=== PATIENT | male | born 1980 | race Caucasian/White ===

== ENCOUNTER 2017-08-11 13:36 | Inpatient (IN) | payer OTHER ==
[~2017-08-11] VITALS: Ht 187 cm; Wt 79.8 kg
--- NOTE | 2017-08-11 15:16 | ED DYSPNEA/ASTHMA COMPLAINT ---
History of Present Illness General Chief Complaint: General Adult Stated Complaint: FEVER, SOB, COUGHING, "SHARP PAIN IN LEFT LUNG" Source: patient Exam Limitations: no limitations Vital Signs & Intake/Output Vital Signs & Intake/Output Vital Signs Date Time Temp Pulse Resp B/P B/P Pulse O2 O2 Flow FiO2 Mean Ox Delivery Rate 08/12 07 98.0 102 20 104/64 96 Room Air 08/11 2351 98.2 92 20 140/89 99 Room Air 08/11 2331 Room Air 08/11 2218 96 16 126/73 97 Room Air 08/11 1943 100.4 08/11 1916 100.4 118 14 124/71 100 Room Air 08/11 1636 101.6 81 22 134/79 99 Room Air 08/11 1629 Room Air 08/11 1414 101.9 08/11 1406 101.9 071 59 5740/83 96 Room Air ED Intake and Output 08/12 0000 08/11 1200 Intake Total 2000 Output Total Balance 1999 Intake, IV 2000 Patient 176 lb Weight Weight Reported by Patient Measurement Method Allergies Coded Allergies: Penicillins ("DON'T WORK WELL WITH ME" 08/11/17) amoxicillin ("DONT WORK WELL WITH ME" 08/11/17) azithromycin (From ZITHROMAX Z-JO) (ITCHING 08/11/17) Reconcile Medications Cholecalciferol (Vitamin D3) (Vitamin D) 400 UNIT CAPSULE 1 TAB PO DAILY SUPPLEMENT (Reported) Doxycycline Hyclate 100 MG CAPSULE 1 CAP PO BID PRN URI (Reported) Fish Oil/Borage/Flax/Om3,6,9#1 ([place] 3-6-9 1,200 MG Softgel) 1,200 MG CAPSULE 1 CAP PO BID PRN SUPPLEMENT (Reported) Hydroxychloroquine Sulfate 200 MG TABLET 2 TAB PO DAILY LUPUS (Reported) Multivitamin (One Daily Multivitamin) 1 EACH TABLET 1 TAB PO DAILY SUPPLEMENT (Reported) Turmeric/Turmeric Ext/Pepr Ext (Turmeric Complex 500 MG Cap) 500 MG-3 MG CAPSULE 1 TAB PO DAILY SUPPLEMENT (Reported) Triage Note: PT TO ED C/O CONTINUED URI/BRONCHITIS S/S. WAS SEEN IN ED IN [place] AND DIAGNOSED WITH BRONCHITIS, PUT ON DOXYCYCLINE 2 WEEKS AGO.STATES BRONCHITIS S/S ARE NOT GETTING BETTER. C/O CONTINUED COUGH. POOR PO INTAKE. TEMP 101.9 IN TRIAGE. MEDICATED WITH TYLENOL. TOOK MOTRIN 0830 THIS AM. Triage Nurses Notes Reviewed? yes HPI: 37 year old male with history of LUPUS diagnosed once in 2007 not under treatment presents to the ER with chief complaint of her upper respiratory symptoms and fever for the past 2 weeks. MAXIMUM TEMPERATURE at home of 2.8. He was seen at [facility] 2 weeks ago had blood, EKG, chest x-ray done which were all negative. They prescribed him doxycycline but he did not start until approximately 4 days ago. He has had a doses by mouth. He didn't try to follow-up with a clinic and he states all of his doctor should change. He recently began plaque L. Patient states he lived in [place] for many years. He states secondary to the weather and he admitted he never experienced any kind of flare and was never treated for lupus other than using [id number] turmeric. Past History Travel History Traveled to [place] past 21 day No Medical History Any Pertinent Medical History? see below for history Respiratory: asthma Blood Disorders: lupus Surgical History Surgical History: adenoids, nasal polyps Psychosocial History What is your primary language Egyptian Tobacco Use: Quit >30 days ago ETOH Use: denies use Illicit Drug Use: denies illicit drug use Family History Comment: COUSIN - LUPUS MOTHERR - POLYCYSTIC KIDNEY DISEASE MATERNAL GRANDMOTHER - DM, CVA CANCERS IN FAMILY (PANCREATIC CANCER) Hx Contributory? Yes Review of Systems Review of Systems Constitutional: Reports: chills, fever. EENTM: Reports: no symptoms. Respiratory: Reports: cough, short of breath. Denies: sputum production. Cardiovascular: Reports: chest pain. GI: Reports: no symptoms. Genitourinary: Reports: no symptoms. Musculoskeletal: Reports: back pain. Skin: Reports: no symptoms. Neurological/Psychological: Reports: no symptoms. Hematologic/Endocrine: Denies: bruising, bleeding, polyuria, polydipsia. Immunologic/Allergic: Reports: no symptoms. All Other Systems: Reviewed and Negative Physical Exam Physical Exam General Appearance: alert, awake, cachetic, mild distress, thin Head: atraumatic, normal appearance Eyes: Bilateral: normal appearance, PERRL, EOMI. Ears, Nose, Throat: normal pharynx, hearing grossly normal Neck: normal inspection, supple, full range of motion Respiratory: normal breath sounds, chest non-tender, decreased breath sounds Cardiovascular: tachycardia Peripheral Pulses: 2+ radial (R), 2+ radial (L) Core Measures ACS in differential dx? Yes CVA/TIA Diagnosis No Sepsis Present: No Sepsis Focused Exam Completed? No Progress Plan of Care: Orders Procedure Date/time Status Nothing by Mouth 08/12 B Active PARTIAL THROMBOPLASTIN TIME 08/12 1030 Active CBC WITHOUT DIFFERENTIAL 08/12 0600 Active AFB WITH SMEAR 08/12 0512 Active Heparin Drip- AFIB/FLUTTER/PE/ 08/12 0504 Active TYPE & SCREEN (NOT X-MATCH) 08/12 0500 Active STREP PNEUMO URINARY ANTIGEN 08/12 0458 Active LEGIONELLA URINARY ANTIGEN 08/12 0458 Active THYROID STIMULATING HORMONE 08/12 0400 Active TROPONIN LEVEL 08/12 0400 Active LYME TITRE 08/12 0400 Active LIPID PANEL 08/12 0400 Active GLYCOSYLATED HGB 08/12 0400 Active FREE T4 08/12 0400 Active BASIC ELECTROLYTES PLUS BUN&CR 08/12 0400 Active EKG 08/12 0400 Active US-LIMITED ABDOMEN 08/12 UNK Active TRC EVALUATION (GEN) 08/12 UNK Active INCENTIVE SPIROMETRY TRX (GEN) 08/12 UNK Active Lab Add-on Test 08/12 UNK Active EKG 08/12 UNK Active ECHOCARDIOGRAM 08/12 UNK Active Vital Signs 08/11 2331 Complete Teach/Educate 08/11 2331 Active Pain Treatment and Response 08/11 2331 Active Nutritional Intake, Monitor 08/11 2331 Active Isolation 08/11 2331 Active Intake & Output 08/11 2331 Complete Patient Care Conference 08/11 2331 Active Activity/Ambulation 08/11 2331 Complete Add-on Test (ER Only) 08/11 2254 Active THYROID STIMULATING HORMONE 08/115 Active TOTAL IRON BINDING CAPACITY 08/11 2204 Active LIPASE 08/11 2204 Active HEPATITIS PANEL 08/11 2204 Active FREE T4 08/11 2204 Active FOLIC ACID 08/11 2204 Active FERRITIN 08/11 2204 Active SERUM IRON 08/11 2204 Active VITAMIN B12 08/11 2204 Active AMYLASE 08/11 2204 Active TROPONIN LEVEL 08/11 2199 Active EKG 08/11 2199 Active Pathway - chart 08/11 2056 Active House Staff 08/11 2056 Active Patient Data 08/11 2056 Active OXYGEN SETUP (GEN) 08/11 2012 Active Saline Lock 08/11 2012 Active Admit to inpatient 08/11 2012 Active Vital Signs 08/11 2012 Active Activity/Ambulation 08/11 2012 Active Code Status 08/11 2012 Active Patient Data 08/11 2002 Active Intake & Output 08/11 1721 Active ETHANOL 08/11 1600 Complete LACTIC ACID 08/11 1523 Complete EKG 08/11 1516 Active BLOOD CULTURE 08/11 1515 Active URINE DRUGS OF ABUSE 08/11 1515 Complete URINALYSIS 08/11 1515 Complete TROPONIN LEVEL 08/11 1515 Complete PARTIAL THROMBOPLASTIN TIME 08/11 1515 Complete PROTHROMBIN TIME 08/11 1515 Complete HIV (Reflex to HIVCQ) 08/11 1515 Complete WESTERGREN SED RATE 08/11 1515 Complete D-DIMER 08/11 1515 Complete C-REACTIVE PROTEIN 08/11 1515 Complete COMPREHENSIVE METABOLIC PANEL 08/11 1515 Complete CBC WITHOUT DIFFERENTIAL 08/11 1515 Complete RAPID VIRAL INFLUENZA A 08/11 1347 Complete Lab Add-on Test 08/11 UNK Active VTE Mechanical Prophylaxis 08/11 UNK Active Current Medications Sig/[place] Start time Last Medication Dose Stop Time Status Admin Ceftriaxone Sodium 1,000 MG 2100 08/12 2100 AC (Rocephin) Doxycycline Hyclate 100 MG 2100 08/12 2100 AC (Vibramycin) Dextrose/Water 100 ML (D5W) Colchicine 600 MCG BID 08/12 1000 CAN (Colchicine 600MCG Tab) Hydroxychloroquine 400 MG DAILY 08/12 1000 AC Sulfate (Plaquenil 200MG Tab) Prednisone 15 MG DAILY 08/12 1000 AC Omeprazole 40 MG DAILY AC 08/12 0700 AC 08/12 (Prilosec) 0449 Acetaminophen 975 MG Q8P PRN 08/12 0600 AC 08/12 (Tylenol) 0610 Sodium Chloride 1,000 ML Q13H 08/12 0515 AC 08/12 (Normal Saline 0.9%) 08/12 1814 0430 Diltiazem HCl 125 MG Q24H 08/12 0330 AC 08/12 (Cardizem DRIP) 0444 Sodium Chloride 100 ML (Normal Saline 0.9%) Heparin Sodium 25,000 UNIT Q24H 08/12 0315 AC 08/12 (Porcine) 0430 (Heparin) Sodium Chloride 500 ML Simethicone 80 MG Q4P PRN 08/11 2345 AC 08/11 (Mylicon) 2352 Laboratory Tests 08/12/17 0620: CBC w Diff Pending, WBC Pending, RBC Pending, Hgb Pending, Hct Pending, MCV Pending, MCH Pending, MCHC Pending, RDW Pending, Plt Count Pending, MPV Pending 08/12/17 0400: Anion Gap 12, Estimated GFR > 60, BUN/Creatinine Ratio 24.0, Hemoglobin A1c Pending, Troponin I < 0.01, Triglycerides 62, Cholesterol 79, LDL Cholesterol, Calc 51 L, HDL Cholesterol 16 L, Cholesterol/HDL Ratio 4.9 H, TSH 0.316, Free T4 1.31, Lyme Disease Antibody Pending 08/11/17 2205: Iron 14 L, TIBC 227 L, Ferritin 466.0 H, Troponin I 0.01, Amylase < 30 L, Lipase 32, Vitamin B12 768, Folate 19.7, TSH 0.677, Free T4 1.48, Hepatitis A IgM Ab Pending, Hep Bs Antigen Pending, Hep B Core IgM Ab Conf Pending, Hepatitis C Antibody Pending 08/11/17 1823: Lactic Acid Cancelled 08/11/17 1719: Urine Opiates Screen < 100.00, Methadone Screen < 40, Barbiturate Screen < 60, Ur Phencyclidine Scrn < 6.00, Amphetamines Screen < 100, U Benzodiazepines Scrn < 85, Urine Cocaine Screen < 50, Urine Cannabis Screen < 5.00, Urine Color YEL, Urine Clarity CLEAR, Urine pH 6.5, Ur Specific [place] 1.010, Urine Protein NEG, Urine Ketones TRACE H, Urine Nitrite NEG, Urine Bilirubin NEG, Urine Urobilinogen 1.0, Ur Leukocyte Esterase NEG, Ur Microscopic EXAM NOT REQUIRED, Urine Hemoglobin NEG, Urine Glucose NEG 08/11/17 1600: Lactic Acid 1.1 08/11/17 1600: Anion Gap 12, Estimated GFR > 60, BUN/Creatinine Ratio 20.0, Glucose 103 H, Calcium 8.9, Total Bilirubin 0.8, AST 21, ALT 52, Alkaline Phosphatase 155 H, Troponin I 0.01, C-Reactive Prot, Quant > 9.0 H, Total Protein 7.7, Albumin 3.6 , Globulin 4.1, Albumin/Globulin Ratio 0.9 L, PT 14.5 H, INR 1.39 H, APTT 30, D-Dimer High Sensitivty 1799 H, CBC w Diff NO MAN DIFF REQ, RBC 3.10 L, MCV 86.5, MCH 28.9, MCHC 33.4, RDW 13.9, MPV 7.2 L, Gran % 80.0 H, Lymphocytes % 10.6 L, Monocytes % 9.2, Eosinophils % 0.1, Basophils % 0.1, Absolute Granulocytes 4.6, Absolute Lymphocytes 0.6 L, Absolute Monocytes 0.5, Absolute Eosinophils 0, Absolute Basophils 0, ESR Westergren > 130 H, HIV 1&2 Ab Western Blot NONREACTIVE, Serum Alcohol < 10.0 Microbiology 08/12 511 LOWER RESP: AFB Culture with PCR Identification - COLB 08/12 511 LOWER RESP: AFB Smear Concentration - COLB 08/12 457 URINE ROUT: Legionella Antigen - COLB 08/12 457 URINE ROUT: Streptococcus pneumoniae Antigen (M - COLB 08/11 1615 BLOOD: Blood Culture - RECD 08/11 1600 BLOOD: Blood Culture - RECD 08/11 1410 NASOPHARYN: Influenza Virus A & B Rapid Smear - COMP Diagnostic Imaging: Viewed by Me: Radiology Read, CT Scan. Discussed w/RAD: Radiology Read, CT Scan. Radiology Impression: PATIENT: ZORAIDA GARZA PRESENT AGE: 37 PATIENT ACCOUNT NO: [id number] : 82 LOCATION: [facility] ORDERING PHYSICIAN: Iris Anthony MD SERVICE DATE: 08/11/17 EXAM TYPE: CAT - CTA CHEST-PULMONARY EMBOLISM EXAMINATION: CT ANGIOGRAM OF THE CHEST WITH AND WITHOUT CONTRAST (CT PULMONARY ANGIOGRAM FOR PE) CLINICAL INFORMATION: Pleuritic chest pain with fever and history of lupus. Concern for pulmonary embolism. COMPARISON : None TECHNIQUE: Prior to contrast administration, noncontrast localization images were obtained. Subsequently, multidetector volumetric imaging was performed from the thoracic inlet to below the diaphragms following the administration of 95 mL Omnipaque 350 intravenous contrast. No contrast reaction reported. Sagittal, coronal, and MIP oblique sagittal reformatted images were obtained on the CT workstation, uploaded to PACS, and reviewed. Total exam dose- length product 370.67 mGy-cm. FINDINGS: QUALITY OF STUDY/CONTRAST BOLUS: Satisfactory PULMONARY ARTERIES: No central or segmental pulmonary emboli. THORACIC AORTA: No aneurysm or dissection. LUNG: Normal patchy bibasilar airspace opacities which may represent hypoventilatory changes. There are tiny scattered calcified granulomas. Focal pleural thickening in the right lung base is nonspecific and may also represent focal atelectasis. There is scattered bronchiectasis in the left lower lobe. There is also minimal scattered intraparenchymal submillimeter cystic change along the subpleural region of the periphery of both upper lobes PLEURA: No pleural effusion or pneumothorax. MEDIASTINUM: Moderate pericardial effusion. Heart size normal is normal. No septal bowing or right heart strain. No hilar or mediastinal lymphadenopathy. CHEST WALL/AXILLA: Scattered small axillary lymph nodes. No enlarged intramammary lymph nodes. OSSEOUS STRUCTURES: Unremarkable. UPPER ABDOMEN: Multiple hypodensities are seen scattered throughout the right hepatic lobe, the largest measuring up to approximately 1.8 x 0.8 cm, incompletely characterized on this examination. The remainder the partially visualized upper abdomen is unremarkable. No reflux of contrast into the hepatic veins to suggest elevated right heart pressures. IMPRESSION: Moderate pericardial effusion. Consider echocardiography for further evaluation. No pulmonary embolism. Scattered minimal bibasilar patchy airspace opacities, most likely representing atelectasis. There is also some scattered bronchiectasis within the left lower lobe and scattered subpleural, submillimeter cystic change in the periphery of the bilateral upper lobes. While these changes most likely represent sequela of lupus, an acute infection, although considered less likely, is not completely excluded. VTE: Negative. DICTATED BY: Lamberto Brizuela MD DATE/TIME DICTATED:04/18 HAZARDOUS WASTE MATERIAL TECHNICIAN:LORENE DATE/TIME TRANSCRIBED:08/11/171849 CONFIDENTIAL, DO NOT COPY WITHOUT APPROPRIATE AUTHORIZATION. <Electronically signed in Other Vendor System> SIGNED BY: Lamberto Brizuela MD 08/11/17 190 CXR Impression: PATIENT: ZORAIDA GARZA PRESENT AGE: 37 PATIENT ACCOUNT NO: [id number] : 82 LOCATION: [facility] ORDERING PHYSICIAN: Iris Anthony MD SERVICE DATE: 08/11/17 EXAM TYPE: RAD - XRY-CHEST XRAY , TWO VIEWS EXAMINATION: XR CHEST CLINICAL INFORMATION: Cough and fever. COMPARISON: None TECHNIQUE: 2 views of the chest were obtained. FINDINGS: The lungs are clear. No pleural effusion. Cardiomediastinal silhouette and pulmonary vasculature are within normal limits. No acute osseous findings. IMPRESSION: No acute cardiopulmonary disease. DICTATED BY: Lamberto Brizuela MD DATE/TIME DICTATED:08/11/171555 HAZARDOUS WASTE MATERIAL TECHNICIAN:LORENE DATE/TIME TRANSCRIBED:1555 CONFIDENTIAL, DO NOT COPY WITHOUT APPROPRIATE AUTHORIZATION. < Electronically signed in Other Vendor System> SIGNED BY: Lamberto Brizuela MD 08/11/17 1600 Initial ED EKG: SINUS TACHYCARDIA Departure Departure Time of Disposition: 1924 Disposition: STILL A PATIENT Condition: Stable Clinical Impression Primary Impression: Lupus Secondary Impressions: Pericardial effusion Referrals: Hammad Toledo MD (PCP/Family) Departure Forms: Customer Survey General Discharge Information Admission Note Sp[facility]: [facility] Documentation of Exam: Documentation of any treatments & extenuating circumstances including Concerns Regarding Discharge (functional status, medication knowledge or non-compliance, living conditions, etc.) that warrant an admission rather than observation: [ TELE MONITOR, ANTIPYRETICS, IV STEROIDS, SERIAL EKG/TROPONIN, ECHOCARDIOGRAM, CONSULT DR SUBRAMANIAN, ID CONSULTATION, RHEUMATOLOGY CONSULTATION]
--- NOTE | 2017-08-11 16:00 | RADIOLOGY REPORT ---
EXAMINATION: XR CHEST CLINICAL INFORMATION: Cough and fever. COMPARISON: None TECHNIQUE: 2 views of the chest were obtained. FINDINGS: The lungs are clear. No pleural effusion. Cardiomediastinal silhouette and pulmonary vasculature are within normal limits. No acute osseous findings. IMPRESSION: No acute cardiopulmonary disease.
[2017-08-11 16:16] LABS: ABSOLUTE BASOPHIL COUNT 0 /CUMM (0.0-0.2); ABSOLUTE EOSINOPHIL COUNT 0 /CUMM (0.0-0.7); ABSOLUTE GRANULOCYTE CT 4.6 /CUMM (1.4-6.5); ABSOLUTE LYMPH COUNT 0.6 /CUMM (1.2-3.4); ABSOLUTE MONOCYTE COUNT 0.5 /CUMM (0.10-0.60); BASOPHIL % 0.1 % (0.0-2.0); EOSINOPHIL % 0.1 % (0-5); HEMATOCRIT 26.8 % (42-52); MEAN CORPUSCULAR HGB 28.9 PG (27.0-31.0); MEAN CORPUSCULAR HGB CONC 33.4 G/DL (33.0-37.0); MEAN CORPUSCULAR VOLUME 86.5 FL (80.0-94.0); MEAN PLATELET VOLUME 7.2 FL (7.4-10.4); PLATELET COUNT 411 /CUMM (130-400); RBC DISTRIBUTION WIDTH 13.9 % (11.5-14.5); WHITE BLOOD CELL COUNT 5.8 /CUMM (4.8-10.8)
[2017-08-11 16:28] LABS: PT 14.5 SEC (9.4-12.5); PTT 30 SEC (25-37)
--- NOTE | 2017-08-11 19:02 | CT SCAN REPORT ---
EXAMINATION: CT ANGIOGRAM OF THE CHEST WITH AND WITHOUT CONTRAST (CT PULMONARY ANGIOGRAM FOR PE) CLINICAL INFORMATION: Pleuritic chest pain with fever and history of lupus. Concern for pulmonary embolism. COMPARISON: None TECHNIQUE: Prior to contrast administration, noncontrast localization images were obtained. Subsequently, multidetector volumetric imaging was performed from the thoracic inlet to below the diaphragms following the administration of 95 mL Omnipaque 350 intravenous contrast. No contrast reaction reported. Sagittal, coronal, and MIP oblique sagittal reformatted images were obtained on the CT workstation, uploaded to PACS, and reviewed. Total exam dose-length product 370.67 mGy-cm. FINDINGS: QUALITY OF STUDY/CONTRAST BOLUS: Satisfactory PULMONARY ARTERIES: No central or segmental pulmonary emboli. THORACIC AORTA: No aneurysm or dissection. LUNG: Normal patchy bibasilar airspace opacities which may represent hypoventilatory changes. There are tiny scattered calcified granulomas. Focal pleural thickening in the right lung base is nonspecific and may also represent focal atelectasis. There is scattered bronchiectasis in the left lower lobe. There is also minimal scattered intraparenchymal submillimeter cystic change along the subpleural region of the periphery of both upper lobes PLEURA: No pleural effusion or pneumothorax. MEDIASTINUM: Moderate pericardial effusion. Heart size normal is normal. No septal bowing or right heart strain. No hilar or mediastinal lymphadenopathy. CHEST WALL/AXILLA: Scattered small axillary lymph nodes. No enlarged intramammary lymph nodes. OSSEOUS STRUCTURES: Unremarkable. UPPER ABDOMEN: Multiple hypodensities are seen scattered throughout the right hepatic lobe, the largest measuring up to approximately 1.8 x 0.8 cm, incompletely characterized on this examination. The remainder the partially visualized upper abdomen is unremarkable. No reflux of contrast into the hepatic veins to suggest elevated right heart pressures. IMPRESSION: Moderate pericardial effusion. Consider echocardiography for further evaluation. No pulmonary embolism. Scattered minimal bibasilar patchy airspace opacities, most likely representing atelectasis. There is also some scattered bronchiectasis within the left lower lobe and scattered subpleural, submillimeter cystic change in the periphery of the bilateral upper lobes. While these changes most likely represent sequela of lupus, an acute infection, although considered less likely, is not completely excluded. VTE: Negative.
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
[2017-08-11] MEDS ORDERED: OMEGA 3-6-9 11200 MG PO (22:46)
[2017-08-11] MEDS ORDERED: TURMERIC COMPL1 EACH PO (22:47)
[2017-08-11] MEDS ORDERED: HYDROXYCHLOROQ200 M2 PO (22:48)
[2017-08-11] MEDS ORDERED: DOXYCYCLINE HY100 M2 PO (22:49)
[2017-08-11] MEDS ORDERED: VITAMIN D400 UNI1 PO (22:49)
[2017-08-11] MEDS ORDERED: ONE DAILY MULT1 EAC2 PO (22:50)
[2017-08-11 23:51] VITALS: BP 140/89
--- NOTE | 2017-08-12 00:28 | Admission Certification ---
Admission Certification Certification Statement - As attending physician, I certify that at the time of - admission, based on clinical presentation, severity of - symptoms, need for further diagnostic testing and - therapeutic interventions, and risk of adverse outcomes - without in-hospital treatment, in my clinical assessment, - this patient requires an acute hospital stay for a minimum - of two nights or longer. I have also considered psychsocial - factors such as support system, advanced age, financial - issues, cognitive issues, and failed out-patient treatments, - past re-admission history, safety of patient, and lack of - compliance as applicable. Specific rationale supporting this admission is: Chest pain, pericardial effusion, community acquired pneumonia in a patient with SLE.
--- NOTE | 2017-08-12 04:06 | Event Note ---
Event Note Event Note: S: Patient tachycardic to [id number] at rest up to 150s while walking. Repeat EKG shows atrial fibrillation. B: Mr. Burgos is a 37-year-old male with past medical history of asthma, SLE, and Zika infection who presents with chest pain and coughing. A/R: I spoke to Dr. Cortes and explained the concern for pericardial effusion and pericarditis. At this time, there is no sign of tamponade or pericarditis on EKG or clinically. Because of this, there is no need to transfer according to Dr. Cortes. Furthermore, he recommends starting IV heparin and IV diltiazem drip to control heart rate. KENJI-VASC score 0. We will also get hemoglobin A1c and TSH. Stool guaiac is negative. We will continue to monitor for signs of tamponade or pericarditis.
[2017-08-12 07:06] VITALS: BP 104/64
[2017-08-12 07:45] LABS: ABSOLUTE BASOPHIL COUNT 0 /CUMM (0.0-0.2); ABSOLUTE EOSINOPHIL COUNT 0 /CUMM (0.0-0.7); ABSOLUTE GRANULOCYTE CT 3.2 /CUMM (1.4-6.5); ABSOLUTE LYMPH COUNT 0.6 /CUMM (1.2-3.4); ABSOLUTE MONOCYTE COUNT 0.3 /CUMM (0.10-0.60); BASOPHIL % 0.2 % (0.0-2.0); EOSINOPHIL % 0.1 % (0-5); GRANULOCYTE % 76.9 % (42.2-75.2); HEMATOCRIT 29.1 % (42-52); MEAN CORPUSCULAR HGB 28.8 PG (27.0-31.0); MEAN CORPUSCULAR HGB CONC 33.2 G/DL (33.0-37.0); MEAN CORPUSCULAR VOLUME 86.8 FL (80.0-94.0); MEAN PLATELET VOLUME 7.7 FL (7.4-10.4); PLATELET COUNT 384 /CUMM (130-400); RBC DISTRIBUTION WIDTH 14.2 % (11.5-14.5); RED BLOOD CELL CT 3.35 /CUMM (4.70-6.10); WHITE BLOOD CELL COUNT 4.2 /CUMM (4.8-10.8)
--- NOTE | 2017-08-12 10:05 | Cons- Rheumatology ---
General Information and HPI Consulting Request Date of Consult: 08/12/17 Requested By: Salbador FERGUSON,Anna Reason for Consult: Evaluate if the patient has SLE Source of Information: patient Exam Limitations: no limitations History of Present Illness: This is a 37-year-old gentleman who was admitted to the hospital yesterday with a fever chest pain and weakness. He was told of lupus just a few months ago at [facility]. He has never seen a fraud analyst to the best of his knowledge. He states in 2005 he was admitted to [facility] for a prolonged hospital stay and extensive workup including a bone marrow but no diagnosis of SLE was made at that time. He has been on and off steroids but has been living in [place] until 11 months ago. He claims she has had intermittent fevers and arthralgias but no swollen joints. He was never told of any renal involvement such as proteinuria or hematuria he does describe Raynaud's phenomenon but no definite malar rash or any cutaneous signs of a vasculitis. Thus far in the hospital he has had a fever and tachycardia. A CAT scan has shown a moderate pericardial effusion and the lungs revealed bibasal are airspace opacities. He has a sedimentation rate of 130 his chemistries are normal but his CBCs shows a hematocrit of 29.1 and a white count of 4200. There are no serologic tests such as an DUKE available. Allergies/Medications Allergies: Coded Allergies: Penicillins ("DON'T WORK WELL WITH ME" 08/11/17) amoxicillin ("DONT WORK WELL WITH ME" 08/11/17) azithromycin (From ZITHROMAX Z-JO) (ITCHING 08/11/17) Home Med List: Cholecalciferol (Vitamin D3) (Vitamin D) 400 UNIT CAPSULE 1 TAB PO DAILY SUPPLEMENT (Reported) Doxycycline Hyclate 100 MG CAPSULE 1 CAP PO BID PRN URI (Reported) Fish Oil/Borage/Flax/Om3,6,9#1 ([place] 3-6-9 1,200 MG Softgel) 1,200 MG CAPSULE 1 CAP PO BID PRN SUPPLEMENT (Reported) Hydroxychloroquine Sulfate 200 MG TABLET 2 TAB PO DAILY LUPUS (Reported) Multivitamin (One Daily Multivitamin) 1 EACH TABLET 1 TAB PO DAILY SUPPLEMENT (Reported) Turmeric/Turmeric Ext/Pepr Ext (Turmeric Complex 500 MG Cap) 500 MG-3 MG CAPSULE 1 TAB PO DAILY SUPPLEMENT (Reported) Current Medications: Current Medications Sig/[place] Start time Last Medication Dose Route Stop Time Status Admin Acetaminophen 975 MG Q8P PRN 08/12 0600 AC 08/12 PO 0610 Acetaminophen 0 .STK-MED ONE 08/11 193 DC IV Acetaminophen 1,000 MG ONCE ONE 08/11 1930 DC 08/11 N/A 1 UNIT IV 08/11 194 194 Acetaminophen 650 MG ONCE ONE 08/11 1415 DC 08/11 PO 08/11 1416 1414 Albuterol Sulfate 3 ML ONCE ONE 08/11 1530 DC 08/11 INH 08/11 1531 1739 Ceftriaxone Sodium 1,000 MG 2100 08/12 2099 AC IV Ceftriaxone Sodium 0 .STK-MED ONE 08/11 2139 DC .ROUTE Ceftriaxone Sodium 1,000 MG ONCE ONE 08/11 2014 DC 08/11 IV 08/11 Colchicine 600 MCG BID 08/12 1000 CAN PO Diltiazem HCl 125 MG Q24H 08/12 0330 AC 08/12 Sodium Chloride 100 ML IV 0444 Doxycycline Hyclate 100 MG 2100 08/12 2099 AC Dextrose/Water 100 ML IV Doxycycline Hyclate 100 MG ONCE ONE 08/11 2014 DC 08/11 Sodium Chloride 100 ML IV 08/11 2119 2100 Enoxaparin Sodium 0 .STK-MED ONE 08/11 2221 DC SC Enoxaparin Sodium 40 MG 08/11 DC 08/11 SC 2223 Heparin Sodium 25,000 UNIT Q24H 08/12 0315 AC 08/12 (Porcine) IV 0430 Sodium Chloride 500 ML Hydroxychloroquine 400 MG DAILY 08/12 1000 AC Sulfate PO Ipratropium [place] 2.5 ML ONCE ONE 08/11 1530 DC 08/11 INH 08/11 1531 1739 Ketorolac 0 .STK-MED ONE 08/11 1948 DC Tromethamine .ROUTE Ketorolac 30 MG ONCE ONE 08/11 1944 DC 08/11 Tromethamine IV 08/11 1945 194 Methylprednisolone 0 .STK-MED ONE 08/11 1937 DC .ROUTE Methylprednisolone 125 MG ONCE ONE 08/11 193 DC 08/11 IV 08/11 193 194 Omeprazole 40 MG DAILY AC 08/13 07 DC PO Omeprazole 40 MG DAILY AC 08/12 0700 AC 08/12 PO 0449 Prednisone 15 MG DAILY 08/12 1000 AC PO Simethicone 80 MG Q4P PRN 08/11 2345 AC 08/11 PO 2352 Sodium Chloride 1,000 ML Q13H 08/12 0515 AC 08/12 IV 08/12 1814 0430 Sodium Chloride 1,000 ML BOLUS ONE 08/11 1645 DC 08/11 IV 08/11 1744 1721 Sodium Chloride 1,000 ML BOLUS ONE 08/11 1530 DC 08/11 IV 08/11 1629 1617 Review of Systems Review of Systems: His chest discomfort is anterior and mildly pleuritic. He has no rashes the current time or any arthralgias Past History Travel History Traveled to [place] past 21 day No Medical History Respiratory: asthma Blood Disorders: lupus Surgical History Surgical History: adenoids, nasal polyps Psychosocial History Smoking Status: Former Smoker ETOH Use: occasional use Illicit Drug Use: denies illicit drug use Exam & Diagnostic Data Vital Signs and I&O Vital Signs Date Time Temp Pulse Resp B/P B/P Pulse O2 O2 Flow FiO2 Mean Ox Delivery Rate 08/12 07 98.0 102 20 104/64 96 Room Air 08/11 2351 98.2 92 20 140/89 99 Room Air 08/11 2331 Room Air 08/11 2218 96 16 126/73 97 Room Air 08/11 1943 100.4 08/11 1916 100.4 118 14 124/71 100 Room Air 08/11 1636 101.6 81 22 134/79 99 Room Air 08/11 1629 Room Air 08/11 1414 101.9 08/11 1406 101.9 365 60 2294/83 96 Room Air Intake & Output 08/12 1600 08/12 0800 08/12 0000 Intake Total 50 2000 Output Total Balance 50 2000 Intake, IV 50 1999 Patient 176 lb Weight Physical Exam: On examination he is a somewhat ill-appearing young man lying in bed sitting up at 45. There were no oral ulcers seen he has no lymphadenopathy in the cervical or supraclavicular regions. His hands and wrists revealed no signs of swelling rash or skin tightness. There is no periungual erythema or palmar erythema. There is no hepatosplenomegaly. His lower extremities reveal no evidence of a rash or livedo reticularis. His knees and ankles reveal no swelling or tenderness on motion. Assessment/Plan Assessment: At this point I am rather hard pressed to make a diagnosis of SLE. The patient appears to have a febrile illness with a pericardial effusion which could be entirely viral. He has no proteinuria or hematuria on urinalysis. An DUKE has not been done. He has been placed on broad-spectrum antibiotics Recommendations: At this time I would recommend the following tests: DUKE, and [id number]-[id number] DNA antibody titer, and anti-LLOYD, complement levels both C3 and C4, and anti-Cardiolipin antibody as well as lupus anticoagulant. An infectious disease consult is pending. Consult Acknowledgment - Thank you for your consult request.
--- NOTE | 2017-08-12 10:09 | PN- Housestaff ---
See Addendum Subjective Follow-up For: Pericardial effusion atypical chest pain Possible pneumonia A. fib Tele-Events Since Last Visit: Normal sinus rhythm, A. fib pulse rate 73-94, increase up to 140, sinus later during the day Subjective: Patient visited today, he looking gentleman, was sitting in bed comfortably in no acute distress, was alert and oriented. No fever or chills, no chest pain anymore, no other events. Patient noted that he was never seen by a mend worker. Jackson Chen MD visited patient today. Considering patient's complicated history attending consulted cardiology regarding transfer. Since there were no significant hemodynamic effect in echo was planned to consider transferring patient to [facility] for more specialized care tomorrow. Review of Systems Constitutional: Reports: see HPI. Objective Last 24 Hrs of Vital Signs/I&O Vital Signs Date Time Temp Pulse Resp B/P B/P Pulse O2 O2 Flow FiO2 Mean Ox Delivery Rate 08/12 1600 Room Air 08/12 1430 97.8 96 20 114/60 98 Room Air 08/12 0706 98.0 102 20 104/64 96 Room Air 08/11 2351 98.2 92 20 140/89 99 Room Air 08/11 2331 Room Air 08/11 2218 96 16 126/73 97 Room Air 08/11 1943 100.4 08/11 1916 100.4 118 14 124/71 100 Room Air Intake & Output 08/12 1600 08/12 0800 08/12 0000 Intake Total 1330 50 2000 Output Total Balance 1330 50 2000 Intake, IV 632 46 1993 Intake, Oral 450 Patient 176 lb Weight Physical Exam General Appearance: Alert, Oriented X3, Cooperative, No Acute Distress, ill looking Skin Temp/Moisture Exam: Warm/Dry Sepsis Skin Exam (color): Normal for Ethnicity HEENT: Atraumatic, EOMI, Mucous Membr. moist/pink, no JVD, no muffled heart sound Neck: No JVD Cardiovascular: Normal S1, Normal S2, regular at the time of interview Lungs: Normal Air Movement, scattered wheezing Abdomen: Soft, No Tenderness Neurological: Normal Speech Current Medications: Current Medications Sig/[place] Start time Last Medication Dose Route Stop Time Status Admin Acetaminophen 975 MG Q8P PRN 08/12 0600 AC 08/12 PO 0610 Acetaminophen 0 .STK-MED ONE 08/11 1938 DC IV Acetaminophen 1,000 MG ONCE ONE 08/11 1930 DC 08/11 N/A 1 UNIT IV 08/11 194 1943 Calcium Carbonate 500 MG ONCE ONE 08/12 1615 DC 08/12 PO 08/12 1616 1643 Ceftriaxone Sodium 1,000 MG 2100 08/12 2100 CAN IV Ceftriaxone Sodium 0 .STK-MED ONE 08/11 2140 DC .ROUTE Ceftriaxone Sodium 1,000 MG ONCE ONE 08/11 2014 DC 08/11 IV 08/11 2015 2100 Colchicine 600 MCG BID 08/12 1000 CAN PO Diltiazem HCl 125 MG Q24H 08/12 0330 AC 08/12 Sodium Chloride 100 ML IV 0444 Doxycycline Hyclate 100 MG 2100 08/12 2100 CAN Dextrose/Water 100 ML IV Doxycycline Hyclate 100 MG ONCE ONE 08/11 2014 DC 08/11 Sodium Chloride 100 ML IV 08/11 2119 2100 Enoxaparin Sodium 0 .STK-MED ONE 08/11 2221 DC SC Enoxaparin Sodium 40 MG 2200 08/11 2199 DC 08/11 SC 2223 Heparin Sodium 6,000 UNIT ONE ONE 08/12 1715 DC 08/12 (Porcine) IV 08/12 1716 1715 Heparin Sodium 25,000 UNIT Q24H 08/12 0315 AC 08/12 (Porcine) IV 0430 Sodium Chloride 500 ML Hydroxychloroquine 400 MG DAILY 08/12 1000 AC 08/12 Sulfate PO 1029 Ketorolac 0 .STK-MED ONE 08/11 1948 DC Tromethamine .ROUTE Ketorolac 30 MG ONCE ONE 08/11 1944 DC 08/11 Tromethamine IV 08/11 1945 1949 Methylprednisolone 0 .STK-MED ONE 08/11 193 DC .ROUTE Methylprednisolone 125 MG ONCE ONE 08/11 1930 DC 08/11 IV 08/11 193 1943 Omeprazole 40 MG DAILY AC 08/13 07 DC PO Omeprazole 40 MG BID 08/12 2200 AC PO Omeprazole 40 MG DAILY AC 08/12 0700 DC 08/12 PO 0449 Prednisone 15 MG DAILY 08/12 1000 AC 08/12 PO 1025 Simethicone 80 MG Q4P PRN 08/11 2345 AC 08/11 PO 2352 Sodium Chloride 1,000 ML Q13H 08/12 0515 AC 08/12 IV 08/12 1814 0430 Sucralfate 1 GM TID 08/12 1727 AC PO Last 24 Hrs of Lab/Ranjith Results Last 24 Hrs of Labs/Mics: Laboratory Tests 08/12/17 1040: APTT 33 08/12/17 0620: CBC w Diff NO MAN DIFF REQ, RBC 3.35 L, MCV 86.8, MCH 28.8, MCHC 33.2, RDW 14.2 , MPV 7.7, Gran % 76.9 H, Lymphocytes % 15.5 L, Monocytes % 7.3, Eosinophils % 0.1, Basophils % 0.2, Absolute Granulocytes 3.2, Absolute Lymphocytes 0.6 L, Absolute Monocytes 0.3, Absolute Eosinophils 0, Absolute Basophils 0 08/12/17 0400: Anion Gap 12, Estimated GFR > 60, BUN/Creatinine Ratio 24.0, Hemoglobin A1c Pending, Troponin I < 0.01, Triglycerides 62, Cholesterol 79, LDL Cholesterol, Calc 51 L, HDL Cholesterol 16 L, Cholesterol/HDL Ratio 4.9 H, TSH 0.316, Free T4 1.31, Lyme Disease Antibody Pending 08/11/17 2205: Iron 14 L, TIBC 227 L, Ferritin 466.0 H, Troponin I 0.01, Amylase < 30 L, Lipase 32, Vitamin B12 768, Folate 19.7, TSH 0.677, Free T4 1.48, Hepatitis A IgM Ab NONREACTIVE, Hep Bs Antigen NONREACTIVE, Hep B Core IgM Ab Conf NONREACTIVE, Hepatitis C Antibody NONREACTIVE 08/11/17 1823: Lactic Acid Cancelled Microbiology 08/12 899 URINE ROUT: Legionella Antigen - COMP 08/12 899 URINE ROUT: Streptococcus pneumoniae Antigen (M - COMP 08/12 511 LOWER RESP: AFB Culture with PCR Identification - COLB 08/12 511 LOWER RESP: AFB Smear Concentration - COLB Assessment/Plan Assessment: Mr. Burgos is a 37-year-old male with past medical history of asthma, SLE, and Zika infection who presents with chest pain and coughing. On presentation, vital signs were T 101.9, HR 130, RR 20, BP 134/79, saturating 96% on room air. Laboratories were significant for white blood cell count 5.8, 80% granulocytes, hemoglobin 8.9, MCV 86.5, platelets 411, ESR greater than 1:30 , sodium 136, chloride 96, lactic acid 1.1, alkaline phosphatase 155, CRP greater than 9, troponin 0.01, INR 1.39, d-dimer 1799. Urine toxicology was negative. Urinalysis showed trace ketones. HIV was negative. Chest x-ray was negative for any acute processes. CTA was negative for any pulmonary embolus but did show normal patchy bibasilar airspace opacities and tiny scattered calcified granulomas. It also showed a moderate pericardial effusion and multiple hypodensities scattered throughout the right hepatic lobe. He received ketorolac , methylprednisone, acetaminophen, 2 L normal saline, ipratropium, and albuterol in the emergency room. He'll be admitted to telemetry and treated for the following problems: 1. Moderate pericardial effusion 2. Chest pain syndrome 3. Normocytic anemia 4. Thrombocytosis 5. Mild hyponatremia 6. Hepatic hypodensities #Moderate pericardial effusion/Chest pain: There is no EKG evidence of pericarditis though imaging showing a moderate pericardial effusion. No JVD or hypotension as well. The etiology of his symptoms is unclear. It may be related to his SLE but could also represent an infection. ECho: Normal size left ventricle. Normal left ventricular wall thickness. No obvious regional wall motion abnormalities. Normal left ventricular ejection fraction visually estimated at > 55%. Normal left ventricular diastolic filling pattern for age. Normal right ventricular size and function. Normal atrial size. Mild mitral regurgitation. Mild tricuspid regurgitation. No evidence of pulmonary hypertension. Trace pulmonic regurgitation. Small pericardial effusion. Left pleural effusion. Dilated inferior vena cava. EKG and troponins 3 was done and ACS ruled out. ceftriaxone and doxycycline were initiated but then discontinued later after consulting Dr Ramos. -Cardiology consult -Infectious disease consult -Rheumatology consult #Normocytic anemia/Thrombocytosis: His anemia is most likely related to chronic disease given his SLE and iron studies. Thrombocytosis is likely reactive. -Continue to monitor for signs of bleeding #Hepatic hypodensities: Alkaline phosphatase is mildly elevated, he has mild epigastric tenderness, and imaging showing hepatic hypodensities. Amylase and lipase negative. HIV negative. -Simethicone -Clear liquid diet, advance as tolerated -Omeprazole -Hepatitis B panel #Mild hyponatremia: Sodium 136. He is asymptomatic. -Continue to monitor DVT prophylaxis with enoxaparin Clear liquid diet Full code Problem List: 1. Lupus 2. Pericardial effusion Pain Ratin Pain Location: Non- Pain Goal: Pain 4 or less Pain Plan: Continue current plan Tomorrow's Labs & Rationales: Malaika BENITES BEP
--- NOTE | 2017-08-12 11:29 | ULTRASOUND REPORT ---
US ABDOMEN LIMITED CLINICAL INFORMATION: Abdominal pain.. COMPARISON: Chest CTA 08/11/2017. TECHNIQUE: Real-time imaging of the right upper quadrant abdominal viscera. FINDINGS: PANCREAS: Normal. LIVER: The liver is enlarged measuring up to 20.4 cm in diameter. Multiple cysts within the right lobe of the liver, the largest measuring 1.5 x 1.4 x 1.2 cm. GALLBLADDER: The gallbladder is significantly distended, measuring 9 cm in diameter. Gallbladder wall thickness is 0.4 cm. There is pericholecystic fluid. No gallstones are identified. COMMON BILE DUCT: Normal in caliber measuring 0.6 cm in diameter. RIGHT KIDNEY: Normal. No hydronephrosis. No renal calculi or focal parenchymal lesions. The kidney measures 13.7 cm in maximum dimension. FREE FLUID: None. IMPRESSION: The gallbladder is significantly distended suggesting gallbladder hydrops and the gallbladder wall is thickened. There is pericholecystic fluid which is nonspecific given the presence of partially imaged abdominal ascites on the 08/11/2017 chest CTA. No gallstones are identified. If there is any clinical concern for acute cholecystitis a HIDA scan can be performed. Hepatomegaly and multiple liver cysts.
[2017-08-12 11:46] LABS: PTT 33 SEC (25-37)
--- NOTE | 2017-08-12 12:13 | Cons- Cardiology ---
General Information and HPI Consulting Request Date of Consult: 08/12/17 Requested By: Salbador FERGUSON,Anna Reason for Consult: Pericardial effusion. Source of Information: patient, family Exam Limitations: poor historian History of Present Illness: Mr. Ranjith Burgos is a 37-year-old male with a history of childhood asthma, previous CK infection, Raynaud's phenomenon, and "systemic lupus erythematosus" who presented to the ED on 08/11/2017 with complaints of left back, low left precordial, and left upper quadrant pain that has been present for approximately 2 weeks after he used a "backpack vacuum". Around this time he also had sick contacts in his home and had a cough. He sought medical attention at [facility] and was placed on doxycycline and nebulizers, but has not felt any better. He was first diagnosed with lupus in 2005, but the evaluation is presently unknown, and he was lost to follow-up. He lived in [place] for 7 years and returned to the [place] in August 2016. While there he had occasional flareups of his lupus (rash, Raynaud's, joint pain , diarrhea, and mild chest pain) that improved when he took prednisone and tumeric. Following this is returned to the [place], he has treated his flares with tumeric and ibuprofen. Approximately 2 weeks ago, he went to the [facility] emergency room and was diagnosed with bronchitis and prescribed doxycycline and nebulizers. He was also being seen at the Lupus clinic at [facility], which has since closed, and was prescribed hydroxychloroquine without significant improvement in his symptoms. His back/lower left precordial, left upper quadrant discomfort is mild, constant , and the exacerbated and ameliorated by positional changes. It is non- exertional. He also admits to mentally productive cough, feverish feeling, sheet soaking night sweats, etc. We were notified that the patient CTA revealed a moderate sized pericardial effusion. Allergies/Medications Allergies: Coded Allergies: Penicillins ("DON'T WORK WELL WITH ME" 08/11/17) amoxicillin ("DONT WORK WELL WITH ME" 08/11/17) azithromycin (From ZITHROMAX Z-JO) (ITCHING 08/11/17) Home Med List: Cholecalciferol (Vitamin D3) (Vitamin D) 400 UNIT CAPSULE 1 TAB PO DAILY SUPPLEMENT (Reported) Doxycycline Hyclate 100 MG CAPSULE 1 CAP PO BID PRN URI (Reported) Fish Oil/Borage/Flax/Om3,6,9#1 ([place] 3-6-9 1,200 MG Softgel) 1,200 MG CAPSULE 1 CAP PO BID PRN SUPPLEMENT (Reported) Hydroxychloroquine Sulfate 200 MG TABLET 2 TAB PO DAILY LUPUS (Reported) Multivitamin (One Daily Multivitamin) 1 EACH TABLET 1 TAB PO DAILY SUPPLEMENT (Reported) Turmeric/Turmeric Ext/Pepr Ext (Turmeric Complex 500 MG Cap) 500 MG-3 MG CAPSULE 1 TAB PO DAILY SUPPLEMENT (Reported) Review of Systems Review of Systems: A 14 point system review was obtained and was noncontributory, other than as above. Past History Travel History Traveled to [place] past 21 day No Medical History Respiratory: asthma Blood Disorders: lupus Surgical History Surgical History: adenoids, nasal polyps Psychosocial History Smoking Status: Former Smoker ETOH Use: occasional use Illicit Drug Use: denies illicit drug use Exam & Diagnostic Data Vital Signs and I&O Date Time Temp Pulse Resp B/P B/P Pulse O2 O2 Flow FiO2 Mean Ox Delivery Rate 08/12 0706 98.0 102 20 104/64 96 Room Air 08/11 2351 98.2 92 20 140/89 99 Room Air 08/11 2331 Room Air 08/11 2218 96 16 126/73 97 Room Air 08/11 1943 100.4 08/11 1916 100.4 118 14 124/71 100 Room Air 08/11 1636 101.6 81 22 134/79 99 Room Air 08/11 1629 Room Air 08/11 1414 101.9 08/11 1406 101.9 251 82 4235/83 96 Room Air Intake & Output 08/12 1600 08/12 0800 08/12 0000 08/11 1600 08/11 0800 08/11 0000 Intake Total 50 2000 Output Total Balance 50 2000 Intake, IV 50 1999 Patient 176 lb 174 lb Weight Weight Reported by Patient Measurement Method Physical Exam: Well developed, thin male in no acute distress who appears pale. Vital signs: See above. HEENT: Normocephalic, hematocrit, EOMI, slightly dry mucous membranes. Neck: No JVD, no bruits. Lungs: Clear to auscultation. Heart: S1, S2 with a grade 1-2/6 systolic murmur. No gallop or rub appreciated. Abdomen: Soft, nontender, positive bowel sounds. Extremities: No edema. Assessment/Plan Assessment/Plan [id number] w/ hx of childhood asthma, previous Zika infection, Raynaud's phenomenon, and "SLE" who presented to the ED on 08/11/2017 w/ c/o left back, low left precordial, and left upper quadrant pain that has been present for approximately 2 weeks after he used a "backpack vacuum". A moderate size pericardial effusion was also observed on CTA and he had transient atrial fibrillation, but is now back in sinus rhythm. While we are not certain at this time that Mr. Burgos has SLE, it is well known to have numerous cardiac problems can be associated with this disease and include pericardial/myocardial disease, valvular disease, coronary disease, and conduction disease. Pericardial involvement is the most common lesion in SLE and is the most frequent cause of symptomatic cardiac disease. Pericardial effusion occurs at some point in over one half of patient's with SLE. The concern is whether his back, lower precordial, & left upper quadrant discomfort is musculoskeletal or associated with his pericardial effusion. We also have to exclude other cardiac manifestations of SLE, if indeed he is discovered to have this disease. Recommendations: * Telemetry admission, follow-up electrocardiograms, follow-up troponins. * Echocardiogram to assess left ventricular function, valvular lesions, hemodynamic compromise from the pericardial effusion, etc. * Assess for lupus anticoagulant/antiphospholipid antibody. * Rheumatology consultation. * Infectious disease consultation. * DVT prophylaxis is being addressed by anticoagulation for his paroxysmal of atrial fibrillation. Further recommendations will follow, Thank you. Consult Acknowledgment - Thank you for your consult request.
[2017-08-12 14:30] VITALS: BP 114/60
--- NOTE | 2017-08-12 14:59 | Discharge Summary ---
Visit Information Visit Dates Admission Date: 08/11/17 Hospital Course Course Attending Physician: Salbador FERGUSON,[facility] Primary Care Physician: Tre FERGUSON,[facility] Course: DRAFT::: Mr Burgos is a 37-year-old male with past medical history of asthma, SLE (no documentation), Zika Infection, Raynaud's phenomenon, who presented to the emergency department with chest pain and cough. He did mention that he had sick contacts at home. He lives in [place] for 7 years until August 2016, and for his "lupus" he was taking prednisone and turmeric preparations. He had a recent admission at [facility], and was also following to this clinic at [facility], currently taking hydroxychloroquine without significant improvement in his symptoms. Further to his symptoms he admits to productive cough, feverish feeling, sheets soaking night sweats. On presentation, vital signs were T 101.9, HR 130, RR 20, BP 134/79, saturating 96% on room air. Laboratories were significant for white blood cell count 5.8, 80% granulocytes, hemoglobin 8.9, MCV 86.5, platelets 411, ESR greater than 1:30 , sodium 136, chloride 96, lactic acid 1.1, alkaline phosphatase 155, CRP greater than 9, troponin 0.01, INR 1.39, d-dimer 1799. Urine toxicology was negative. Urinalysis showed trace ketones. HIV was negative. Chest x-ray was negative for any acute processes. CTA was negative for any pulmonary embolus but did show normal patchy bibasilar airspace opacities and tiny scattered calcified granulomas. It also showed a moderate pericardial effusion and multiple hypodensities scattered throughout the right hepatic lobe. He received ketorolac , methylprednisone, acetaminophen, 2 L normal saline, ipratropium, and albuterol in the emergency room. He was admitted to the telemetry floor for the management of following issues: #Moderate pericardial effusion Patient symptoms were consistent with pericarditis, EKG did not show any evidence of pericarditis although imaging showed moderate pericardial effusion but no cardiac tamponade. Pericardial effusion is, and with SLE, and currently the patient's hemodynamics stable... Rheumatology consultation was done, who wanted to explore further diagnosis of SLE on him and ordered rheumatologic workup, labs pending. This could also be done in outpatient setting. #Paroxysmal atrial fibrillation, rate controlled Patient has rate control paroxysmal atrial fibrillation, and is being anti- coagulated. Overnight, he had atrial fibrillation with RVR, requiring IV Cardizem drip after consulting with elastic assembler Lester Cortes MD. He is currently in sinus rhythm with rate in 100s. #His home medications were continued otherwise. #Diet: Heart healthy #DVT ppx: IV Heparin #Code status: Full code Allergies: Coded Allergies: Penicillins ("DON'T WORK WELL WITH ME" 08/11/17) amoxicillin ("DONT WORK WELL WITH ME" 08/11/17) azithromycin (From ZITHROMAX Z-JO) (ITCHING 08/11/17) Significant Procedures: Echo done on 08/12/2017: FINDINGS Left Ventricle Normal size left ventricle. Normal left ventricular wall thickness. No obvious regional wall motion abnormalities. Normal left ventricular ejection fraction visually estimated at >55%. Normal left ventricular diastolic filling pattern for age. Right Ventricle Normal right ventricular size and function. Right Atrium Normal right atrial size. Left Atrium Normal left atrial size. Mitral Valve Mitral valve mildly thickened. Mild mitral regurgitation. Aortic Valve Structurally normal trileaflet aortic valve. No aortic valve stenosis or regurgitation. Tricuspid Valve Structurally normal tricuspid valve. Mild tricuspid regurgitation. No evidence of pulmonary hypertension. Right ventricular systolic pressure estimated to be within the normal range at 28 mmHg. Pulmonic Valve Pulmonic valve not well visualized, grossly normal. Trace pulmonic regurgitation. Pericardium Small pericardial effusion. No echocardiographic findings to suggest a hemodynamically significant pericardial effusion. Left pleural effusion. Great Vessels Normal size aortic root. Dilated inferior vena cava. CONCLUSIONS Normal size left ventricle. Normal left ventricular wall thickness. No obvious regional wall motion abnormalities. Normal left ventricular ejection fraction visually estimated at > 55%. Normal left ventricular diastolic filling pattern for age. Normal right ventricular size and function. Normal atrial size. Mild mitral regurgitation. Mild tricuspid regurgitation. No evidence of pulmonary hypertension. Trace pulmonic regurgitation. Small pericardial effusion. Left pleural effusion. Dilated inferior vena cava. Lester Cortes M.D. (Electronically Signed) Final Date: 12 August 2017 15:13 MEASUREMENTS (Male / Female) Normal Values 2D ECHO LV Diastolic Diameter PLAX 4.9 cm 4.2 - 5.9 / 3.9 - 5.3 cm LV Systolic Diameter PLAX 3.4 cm 2.1 - 4.0 cm LV Fractional Shortening PLAX 30.6 % 25 - 46 % LV Ejection Fraction 2D Teich 58.0 % IVS Diastolic Thickness 0.9 cm LVPW Diastolic Thickness 0.9 cm LV Relative Wall Thickness 0.4 RV Internal Dim ED PLAX 2.8 cm 1.9 - 3.8 cm LVOT Diameter 2.2 cm Aortic Root Diameter 3.4 cm LA Systolic Diameter LX 3.7 cm 3.0 - 4.0 / 2.7 - 3.8 cm LA Volume 55.0 cm 18 - 58 / 22 - 52 cm Ascending Aorta Diameter 3.0 cm DOPPLER AV Peak Velocity 113.0 cm/s AV Peak Gradient 5.1 mmHg AV Mean Velocity 82.8 cm/s AV Mean Gradient 3.0 mmHg AV Velocity Time Integral 22.2 cm LVOT Peak Velocity 91.7 cm/s LVOT Peak Gradient 3.4 mmHg LVOT Mean Velocity 64.8 cm/s LVOT Mean Gradient 2.0 mmHg LVOT Velocity Time Integral 17.8 cm LVOT Stroke Volume 67.7 cm AV Area Cont Eq vti 3.0 cm AV Area Cont Eq pk 3.1 cm MV Peak Velocity 114.0 cm/s MV Peak Gradient 5.2 mmHg MV Mean Velocity 69.0 cm/s MV Mean Gradient 2.0 mmHg Mitral E Point Velocity 97.7 cm/s Mitral A Point Velocity 49.4 cm/s Mitral E to A Ratio 2.0 MV PHT Velocity 121.0 cm/s MV Deceleration Ware 549.0 cm/s MV Pressure Half Time 66.1 ms MV Area PHT 3.3 cm MV Deceleration Time 254.0 ms TR Peak Velocity 239.0 cm/s TR Peak Gradient 22.8 mmHg Right Atrial Pressure 5.0 mmHg Pulmonary Artery Systolic Pressu 27.8 mmHg Right Ventricular Systolic Press 27.8 mmHg PV Peak Velocity 86.9 cm/s PV Peak Gradient 3.0 mmHg PV Mean Velocity 71.6 cm/s PV Mean Gradient 2.0 mmHg PV Velocity Time Integral 22.8 cm LV E' Lateral Velocity 12.5 cm/s Mitral E to LV E' Lateral Ratio 7.8 LV E' Septal Velocity 10.9 cm/s Mitral E to LV E' Septal Ratio 9.0 CT angiogram/chest done on 08/11/2017: FINDINGS: QUALITY OF STUDY/CONTRAST BOLUS: Satisfactory PULMONARY ARTERIES: No central or segmental pulmonary emboli. THORACIC AORTA: No aneurysm or dissection. LUNG: Normal patchy bibasilar airspace opacities which may represent hypoventilatory changes. There are tiny scattered calcified granulomas. Focal pleural thickening in the right lung base is nonspecific and may also represent focal atelectasis. There is scattered bronchiectasis in the left lower lobe. There is also minimal scattered intraparenchymal submillimeter cystic change along the subpleural region of the periphery of both upper lobes PLEURA: No pleural effusion or pneumothorax. MEDIASTINUM: Moderate pericardial effusion. Heart size normal is normal. No septal bowing or right heart strain. No hilar or mediastinal lymphadenopathy. CHEST WALL/AXILLA: Scattered small axillary lymph nodes. No enlarged intramammary lymph nodes. OSSEOUS STRUCTURES: Unremarkable. UPPER ABDOMEN: Multiple hypodensities are seen scattered throughout the right hepatic lobe, the largest measuring up to approximately 1.8 x 0.8 cm, incompletely characterized on this examination. The remainder the partially visualized upper abdomen is unremarkable. No reflux of contrast into the hepatic veins to suggest elevated right heart pressures. IMPRESSION: Moderate pericardial effusion. Consider echocardiography for further evaluation. No pulmonary embolism. Scattered minimal bibasilar patchy airspace opacities, most likely representing atelectasis. There is also some scattered bronchiectasis within the left lower lobe and scattered subpleural, submillimeter cystic change in the periphery of the bilateral upper lobes. While these changes most likely represent sequela of lupus, an acute infection, although considered less likely, is not completely excluded. VTE: Negative. DICTATED BY: Lamberto Brziuela MD DATE/TIME DICTATED:08/11/171849 RV SERVICE TECHNICIAN:LORENE DATE/TIME TRANSCRIBED:08/11/171849 Ultrasound of abdomen done on 08/12/2017: FINDINGS: PANCREAS: Normal. LIVER: The liver is enlarged measuring up to 20.4 cm in diameter. Multiple cysts within the right lobe of the liver, the largest measuring 1.5 x 1.4 x 1.2 cm. GALLBLADDER: The gallbladder is significantly distended, measuring 9 cm in diameter. Gallbladder wall thickness is 0.4 cm. There is pericholecystic fluid. No gallstones are identified. COMMON BILE DUCT: Normal in caliber measuring 0.6 cm in diameter. RIGHT KIDNEY: Normal. No hydronephrosis. No renal calculi or focal parenchymal lesions. The kidney measures 13.7 cm in maximum dimension. FREE FLUID: None. IMPRESSION: The gallbladder is significantly distended suggesting gallbladder hydrops and the gallbladder wall is thickened. There is pericholecystic fluid which is nonspecific given the presence of partially imaged abdominal ascites on the 08/11/2017 chest CTA. No gallstones are identified. If there is any clinical concern for acute cholecystitis a HIDA scan can be performed. Hepatomegaly and multiple liver cysts. DICTATED BY: Kade Cartagena MD DATE/TIME DICTATED:08/12/171122 RV SERVICE TECHNICIAN:LORENE DATE/TIME TRANSCRIBED:08/12/171122 Chest x-ray done on 08/11/2017: FINDINGS: The lungs are clear. No pleural effusion. Cardiomediastinal silhouette and pulmonary vasculature are within normal limits. No acute osseous findings. IMPRESSION: No acute cardiopulmonary disease. DICTATED BY: Lamberto Brizuela MD DATE/TIME DICTATED:08/11/171555 RV SERVICE TECHNICIAN:LORENE DATE/TIME TRANSCRIBED:08/11/171555 Disposition Summary Disposition Principal Diagnosis: Pericardial effusion without cardiac tamponade Additional Diagnosis: asthma, SLE, Zika Infection, Raynaud's phenomenon Discharge Disposition: home health services Discharge Instructions General Discharge Information Code Status: Full Code Patient's Diet: Heart healthy diet Patient's Activity: As tolerated Follow-Up Instructions/Appts: Please follow-up with your primary care doctor, and your elastic assembler within 1 week of discharge. Please return to emergency if symptoms worsen. Medications at Discharge Discharge Medications: Stop taking the following medications: Doxycycline Hyclate (Doxycycline Hyclate) 100 MG CAPSULE ORAL TWICE DAILY as needed for URI Days = 7 Continue taking these medications: Fish Oil/Borage/Flax/Om3,6,9#1 ([place] 3-6-9 1,200 MG Softgel) 1,200 MG CAPSULE 1 Capsule ORAL TWICE DAILY as needed for SUPPLEMENT Turmeric/Turmeric Ext/Pepr Ext (Turmeric Complex 500 MG Cap) 500 MG-3 MG CAPSULE 1 Tablet ORAL DAILY Hydroxychloroquine Sulfate (Hydroxychloroquine Sulfate) 200 MG TABLET 2 Tablet ORAL DAILY Comments: Last Taken:08/14/17 Time:1000 PLANQUINEL Cholecalciferol (Vitamin D3) (Vitamin D) 400 UNIT CAPSULE 1 Tablet ORAL DAILY Comments: Last Taken:08/14/17 Time:1000 Multivitamin (One Daily Multivitamin) 1 EACH TABLET 1 Tablet ORAL DAILY Qty = 30 Comments: Last Taken:08/14/17 Time:1000 Start taking the following new medications: Prednisone (Prednisone) 20 MG TABLET 20 Milligram ORAL TAPER Qty = 30 No Refills Instructions: TAKE 2 TABS (4O MG) DAILY FOR 6 DAYS TAKE 1.5 TABS (30 MG) DAILY FOR 7 DAYS THEN TAKE 1 TAB (2O MG) DAILY THEREAFTER Comments: Last Taken:08/14/17 Time:430PM Colchicine (Colchicine) 0.6 MG TABLET 600 Microgram ORAL TWICE DAILY Qty = 60 No Refills Comments: Last Taken:08/14/17 Time:1000 Lidocaine (Lidoderm) 5 % ADH..PATCH 1 Patch ON SKIN DAILY Qty = 7 No Refills Comments: Last Taken:08/14/17 Time:1000 Diltiazem HCl (Cardizem) 30 MG TABLET 30 Milligram ORAL Q8H Qty = 90 No Refills Comments: Last Taken:08/14/17 Time:430PM Copies To: Sebastian FERGUSON,Lester Musa; Masoud FERGUSON,Car Chen MD,Jackson Carter; Tre FERGUSON,Hammad
--- NOTE | 2017-08-12 15:13 | ECHOCARDIOGRAM REPORT ---
ZORAIDA GARZA Age: 37 : 1980 Gender: M Exam Date: 08/12/2017 13:55 Exam Location: 1 [address] Ht (in): 74 Wt (lb): 172 BSA: 2.01 BP: 104 / 64 Ordering Physician: Patricia Bowden MD Referring Physician: Lester Cortes MD Technologist: Kayy Quinones [facility] Room Number: 179-01 Indications: STRUCTURAL HEART DISEASE Rhythm: Sinus Technical Quality: Fair FINDINGS Left Ventricle Normal size left ventricle. Normal left ventricular wall thickness. No obvious regional wall motion abnormalities. Normal left ventricular ejection fraction visually estimated at >55%. Normal left ventricular diastolic filling pattern for age. Right Ventricle Normal right ventricular size and function. Right Atrium Normal right atrial size. Left Atrium Normal left atrial size. Mitral Valve Mitral valve mildly thickened. Mild mitral regurgitation. Aortic Valve Structurally normal trileaflet aortic valve. No aortic valve stenosis or regurgitation. Tricuspid Valve Structurally normal tricuspid valve. Mild tricuspid regurgitation. No evidence of pulmonary hypertension. Right ventricular systolic pressure estimated to be within the normal range at 28 mmHg. Pulmonic Valve Pulmonic valve not well visualized, grossly normal. Trace pulmonic regurgitation. Pericardium Small pericardial effusion. No echocardiographic findings to suggest a hemodynamically significant pericardial effusion. Left pleural effusion. Great Vessels Normal size aortic root. Dilated inferior vena cava. CONCLUSIONS Normal size left ventricle. Normal left ventricular wall thickness. No obvious regional wall motion abnormalities. Normal left ventricular ejection fraction visually estimated at > 55%. Normal left ventricular diastolic filling pattern for age. Normal right ventricular size and function. Normal atrial size. Mild mitral regurgitation. Mild tricuspid regurgitation. No evidence of pulmonary hypertension. Trace pulmonic regurgitation. Small pericardial effusion. Left pleural effusion. Dilated inferior vena cava. Lester Cortes M.D. (Electronically Signed) Final Date: 12 August 2017 15:13 MEASUREMENTS (Male / Female) Normal Values 2D ECHO LV Diastolic Diameter PLAX 4.9 cm 4.2 - 5.9 / 3.9 - 5.3 cm LV Systolic Diameter PLAX 3.4 cm 2.1 - 4.0 cm LV Fractional Shortening PLAX 30.6 % 25 - 46 % LV Ejection Fraction 2D Teich 58.0 % IVS Diastolic Thickness 0.9 cm LVPW Diastolic Thickness 0.9 cm LV Relative Wall Thickness 0.4 RV Internal Dim ED PLAX 2.8 cm 1.9 - 3.8 cm LVOT Diameter 2.2 cm Aortic Root Diameter 3.4 cm LA Systolic Diameter LX 3.7 cm 3.0 - 4.0 / 2.7 - 3.8 cm LA Volume 55.0 cm 18 - 58 / 22 - 52 cm Ascending Aorta Diameter 3.0 cm DOPPLER AV Peak Velocity 113.0 cm/s AV Peak Gradient 5.1 mmHg AV Mean Velocity 82.8 cm/s AV Mean Gradient 3.0 mmHg AV Velocity Time Integral 22.2 cm LVOT Peak Velocity 91.7 cm/s LVOT Peak Gradient 3.4 mmHg LVOT Mean Velocity 64.8 cm/s LVOT Mean Gradient 2.0 mmHg LVOT Velocity Time Integral 17.8 cm LVOT Stroke Volume 67.7 cm AV Area Cont Eq vti 3.0 cm AV Area Cont Eq pk 3.1 cm MV Peak Velocity 114.0 cm/s MV Peak Gradient 5.2 mmHg MV Mean Velocity 69.0 cm/s MV Mean Gradient 2.0 mmHg Mitral E Point Velocity 97.7 cm/s Mitral A Point Velocity 49.4 cm/s Mitral E to A Ratio 2.0 MV PHT Velocity 121.0 cm/s MV Deceleration Oliver 549.0 cm/s MV Pressure Half Time 66.1 ms MV Area PHT 3.3 cm MV Deceleration Time 254.0 ms TR Peak Velocity 239.0 cm/s TR Peak Gradient 22.8 mmHg Right Atrial Pressure 5.0 mmHg Pulmonary Artery Systolic Pressu 27.8 mmHg Right Ventricular Systolic Press 27.8 mmHg PV Peak Velocity 86.9 cm/s PV Peak Gradient 3.0 mmHg PV Mean Velocity 71.6 cm/s PV Mean Gradient 2.0 mmHg PV Velocity Time Integral 22.8 cm LV E' Lateral Velocity 12.5 cm/s Mitral E to LV E' Lateral Ratio 7.8 LV E' Septal Velocity 10.9 cm/s Mitral E to LV E' Septal Ratio 9.0
--- NOTE | 2017-08-12 15:47 | Patient Discharge Instructions ---
Discharge Instructions General Discharge Information You were seen/treated for: Pericardial effusion without cardiac tamponade lupus Special Instructions: Please follow-up with your primary care doctor, DR ADAM /DR RUSH on sunday 08/20 1 PM. and your blood bank supervisor within 1 week of discharge. Please return to emergency if symptoms worsen. Diet Continue normal diet: Yes Recommended Diet: Heart Healthy Activity Full Activity/No Limits: Yes Activity Self Limited: Yes Acute Coronary Syndrome Inclusion Criteria At DC or during hospital stay patient has or had the following: ACS DIAGNOSIS No Discharge Core Measures Meds if any: Prescribed or Continued at Discharge Meds if any: NOT Prescribed or Continued at Discharge Congestive Heart Failure Inclusion Criteria At DC or during hospital stay patient has or had the following: CHF DIAGNOSIS No Discharge Core Measures Meds if any: Prescribed or Continued at Discharge Meds if any: NOT Prescribed or Continued at Discharge Cerebrovascular accident Inclusion Criteria At DC or during hospital stay patient has or had the following: CVA/TIA Diagnosis No Discharge Core Measures Meds if any: Prescribed or Continued at Discharge Meds if any: NOT Prescribed or Continued at Discharge Venous thromboembolism Inclusion Criteria VTE Diagnosis No VTE Type NONE VTE Confirmed by (Test) NONE Discharge Core Measures - Per Current guidelines, there needs to be overlap - treatment for the first 5 days of Warfarin therapy. - If discharged on Warfarin prior to 5 days of - overlap therapy, the patient will need to be - assessed for post discharge needs including - *Post discharge parental anticoagulation - *Warfarin and/or parental anticoagulation education - *Follow up date to check INR post discharge At least 5 days overlap therapy as Inpatient No Meds if any: Prescribed or Continued at Discharge Note: Overlap Therapy is Warfarin and Anticoagulant Meds if any: NOT Prescribed or Continued at Discharge
[2017-08-12 23:07] VITALS: BP 122/70
[2017-08-12 23:25] LABS: PTT 40 SEC (25-37)
[2017-08-13 07:21] VITALS: BP 108/58
[2017-08-13 07:36] LABS: PTT 89 SEC (25-37)
[2017-08-13 08:04] LABS: ABSOLUTE BASOPHIL COUNT 0 /CUMM (0.0-0.2); ABSOLUTE EOSINOPHIL COUNT 0 /CUMM (0.0-0.7); ABSOLUTE GRANULOCYTE CT 5.7 /CUMM (1.4-6.5); ABSOLUTE LYMPH COUNT 2.4 /CUMM (1.2-3.4); ABSOLUTE MONOCYTE COUNT 0.8 /CUMM (0.10-0.60); BASOPHIL % 0.4 % (0.0-2.0); EOSINOPHIL % 0 % (0-5); GRANULOCYTE % 63.6 % (42.2-75.2); HEMATOCRIT 27.4 % (42-52); MEAN CORPUSCULAR HGB CONC 33.4 G/DL (33.0-37.0); MEAN PLATELET VOLUME 7.6 FL (7.4-10.4); PLATELET COUNT 374 /CUMM (130-400); RBC DISTRIBUTION WIDTH 14.1 % (11.5-14.5); RED BLOOD CELL CT 3.15 /CUMM (4.70-6.10)
--- NOTE | 2017-08-13 08:10 | PN- Housestaff ---
See Addendum Subjective Follow-up For: Pericardial effusion atypical chest pain Possible SLE related pneumonia A. fib - sinus now Tele-Events Since Last Visit: NSr 65-87 PVCs Subjective: Patient visited today, was lying in bed comfortably in no acute distress, was alert and oriented. Rerpoted improved generalized condition. No fever or chills, no shortness of breathing, no chest pain, no other events. Patient converted, discontinued heparin and cardizem. Patient had relatively increase in heart murmur despite being subjective, most likely friction rub cardiology will re-examine and consider repeated echo Review of Systems Constitutional: Reports: see HPI. Objective Last 24 Hrs of Vital Signs/I&O Vital Signs Date Time Temp Pulse Resp B/P B/P Pulse O2 O2 Flow FiO2 Mean Ox Delivery Rate 08/13 1002 Room Air 08/13 0721 97.6 74 20 108/58 97 Room Air 08/12 2307 97.9 101 22 122/70 98 Room Air 08/12 1600 Room Air 08/12 1430 97.8 96 20 114/60 98 Room Air Intake & Output 08/13 1600 08/13 0800 08/13 0000 Intake Total 550 950 Output Total Balance 550 950 Intake, IV 350 300 Intake, Oral 200 650 Physical Exam General Appearance: Alert, Oriented X3, Cooperative, No Acute Distress Skin: No Significant Lesion Skin Temp/Moisture Exam: Warm/Dry Sepsis Skin Exam (color): Normal for Ethnicity HEENT: Atraumatic, EOMI, Mucous Membr. moist/pink Neck: No JVD Cardiovascular: Regular Rate, Normal S1, Normal S2, Converted to sinus rythm, systolic murmur, s3 Lungs: Clear to Auscultation Abdomen: Soft, No Tenderness Neurological: grossly normal no change compared to yesterday Extremities: No Edema Current Medications: Current Medications Sig/Jefferson Start time Last Medication Dose Route Stop Time Status Admin Acetaminophen 975 MG Q8P PRN 08/12 0600 AC 08/12 PO 2228 Calcium Carbonate 500 MG ONCE ONE 08/12 1615 DC 08/12 PO 08/12 1616 1643 Ceftriaxone Sodium 1,000 MG 08/12 2100 CAN IV Diltiazem HCl 125 MG Q24H 08/12 0330 AC 08/13 Sodium Chloride 100 ML IV 0301 Doxycycline Hyclate 100 MG 08/12 2100 CAN Dextrose/Water 100 ML IV Heparin Sodium 6,000 UNIT ONCE ONE 08/13 0045 DC 08/13 (Porcine) IV 08/13 0046 0030 Heparin Sodium 6,000 UNIT ONE ONE 08/12 1715 DC 08/12 (Porcine) IV 08/12 171 1715 Heparin Sodium 25,000 UNIT Q24H 08/12 0315 DC 08/12 (Porcine) IV 2224 Sodium Chloride 500 ML Hydroxychloroquine 400 MG DAILY 08/12 1000 AC 08/13 Sulfate PO 0950 Ibuprofen 400 MG ONCE ONE 08/13 0430 DC 08/13 PO 08/13 0431 0420 Lidocaine 1 PAT DAILY 08/13 1130 AC EXT Omeprazole 40 MG DAILY AC 08/13 0700 DC PO Omeprazole 40 MG BID 08/12 2200 AC 08/13 PO 0949 Omeprazole 40 MG DAILY AC 08/12 0700 DC 08/12 PO 0449 Prednisone 15 MG DAILY 08/12 1000 AC 08/13 PO 0950 Simethicone 80 MG Q4P PRN 08/11 2345 AC 08/13 PO 0035 Sodium Chloride 1,000 ML Q13H 08/12 0515 DC 08/12 IV 08/12 1814 0430 Sucralfate 1 GM TID 08/12 1727 AC 08/13 PO 0949 Last 24 Hrs of Lab/Ranjith Results Last 24 Hrs of Labs/Mics: Laboratory Tests 08/13/17 0625: Anion Gap 8, Estimated GFR > 60, BUN/Creatinine Ratio 20.0, APTT 89 H, CBC w Diff NO MAN DIFF REQ, RBC 3.15 L, MCV 87.0, MCH 29.0, MCHC 33.4, RDW 14.1, MPV 7.6, Gran % 63.6, Lymphocytes % 26.6, Monocytes % 9.4 H, Eosinophils % 0, Basophils % 0.4, Absolute Granulocytes 5.7, Absolute Lymphocytes 2.4, Absolute Monocytes 0.8 H, Absolute Eosinophils 0, Absolute Basophils 0 08/12/177: APTT 40 H Assessment/Plan Assessment: Mr. Burgos is a 37-year-old male with past medical history of asthma, SLE, and Zika infection who presents with chest pain and coughing. On presentation, vital signs were T 101.9, HR 130, RR 20, BP 134/79, saturating 96% on room air. Laboratories were significant for white blood cell count 5.8, 80% granulocytes, hemoglobin 8.9, MCV 86.5, platelets 411, ESR greater than 1:30 , sodium 136, chloride 96, lactic acid 1.1, alkaline phosphatase 155, CRP greater than 9, troponin 0.01, INR 1.39, d-dimer 1799. Urine toxicology was negative. Urinalysis showed trace ketones. HIV was negative. Chest x-ray was negative for any acute processes. CTA was negative for any pulmonary embolus but did show normal patchy bibasilar airspace opacities and tiny scattered calcified granulomas. It also showed a moderate pericardial effusion and multiple hypodensities scattered throughout the right hepatic lobe. He received ketorolac , methylprednisone, acetaminophen, 2 L normal saline, ipratropium, and albuterol in the emergency room. He'll be admitted to telemetry and treated for the following problems: 1. Moderate pericardial effusion 2. Chest pain syndrome 3. Normocytic anemia 4. Thrombocytosis 5. Mild hyponatremia 6. Hepatic hypodensities #Moderate pericardial effusion/Chest pain: There is no EKG evidence of pericarditis though imaging showing a moderate pericardial effusion. No JVD or hypotension as well. The etiology of his symptoms is unclear. It may be related to his SLE but could also represent an infection. ECho: Normal size left ventricle. Normal left ventricular wall thickness. No obvious regional wall motion abnormalities. Normal left ventricular ejection fraction visually estimated at > 55%. Normal left ventricular diastolic filling pattern for age. Normal right ventricular size and function. Normal atrial size. Mild mitral regurgitation. Mild tricuspid regurgitation. No evidence of pulmonary hypertension. Trace pulmonic regurgitation. Small pericardial effusion. Left pleural effusion. Dilated inferior vena cava. EKG and troponins 3 was done and ACS ruled out. ceftriaxone and doxycycline were initiated but then discontinued later after consulting Dr Ramos. -Cardiology consult -Infectious disease consult -Rheumatology consult #Normocytic anemia/Thrombocytosis: His anemia is most likely related to chronic disease given his SLE and iron studies. Thrombocytosis is likely reactive. -Continue to monitor for signs of bleeding #Hepatic hypodensities: Alkaline phosphatase is mildly elevated, he has mild epigastric tenderness, and imaging showing hepatic hypodensities. Amylase and lipase negative. HIV negative. -Simethicone -Clear liquid diet, advance as tolerated -Omeprazole -Hepatitis B panel #Mild hyponatremia: Sodium 136. He is asymptomatic. -Continue to monitor DVT prophylaxis with enoxaparin Clear liquid diet Full code Problem List: 1. Pericardial effusion 2. Lupus Pain Ratin Pain Location: mild neck pain, related to sleeping Pain Goal: Pain 4 or less Pain Plan: Conintue current plan Tomorrow's Labs & Rationales: CBC BEP
[2017-08-13 14:14] VITALS: BP 120/76
--- NOTE | 2017-08-13 18:13 | PN- Cardiology ---
Subjective Subjective: Admits to discomfort in his lower precordial region and left upper quadrant with an associated "gurgling" sensation with inspiration. On telemetry he has been maintaining sinus rhythm. Objective Vital Signs and I&Os Vital Signs Date Time Temp Pulse Resp B/P B/P Pulse O2 O2 Flow FiO2 Mean Ox Delivery Rate 08/13 1414 97.9 85 20 120/76 99 Room Air 08/13 1002 Room Air 08/13 0721 97.6 74 20 108/58 97 Room Air 08/12 2307 97.9 101 22 122/70 98 Room Air Intake & Output 08/13 1600 08/13 0800 08/13 0000 08/12 1600 08/12 0800 08/12 0000 Intake Total 590 689 264 3289 50 2000 Output Total Balance 590 205 940 4257 50 2000 Intake, IV 40 350 300 895 47 2949 Intake, Oral 550 200 650 450 Number 1 Bowel Movements Patient 176 lb Weight Physical Exam: Well-developed, thin middle-aged male who appears pale and in no acute distress. Vital signs: See above. Neck: No JVD, no bruits. Lungs: Decreased breath sounds at the bases. Heart: S1, S2 with grade 1-2/6 systolic murmur and biphasic friction rub. Abdomen: Soft, nontender, positive bowel sounds. Extremities: No edema. Current Medications: Current Medications Sig/Jefferson Start time Last Medication Dose Route Stop Time Status Admin Acetaminophen 975 MG Q8P PRN 08/12 0600 AC 08/13 PO 1554 Diltiazem HCl 125 MG Q24H 08/12 0330 AC 08/13 Sodium Chloride 100 ML IV 0301 Heparin Sodium 6,000 UNIT ONCE ONE 08/13 0045 DC 08/13 (Porcine) IV 08/13 0046 0030 Heparin Sodium 25,000 UNIT Q24H 08/12 0315 DC 08/12 (Porcine) IV 2224 Sodium Chloride 500 ML Hydroxychloroquine 400 MG DAILY 08/12 1000 AC 08/13 Sulfate PO 0950 Ibuprofen 400 MG ONCE ONE 08/13 0430 DC 08/13 PO 08/13 0431 0420 Lidocaine 1 PAT DAILY 08/13 1130 AC 08/13 EXT 1444 Omeprazole 40 MG DAILY AC 08/13 0700 DC PO Omeprazole 40 MG BID 08/12 2200 AC 08/13 PO 0949 Prednisone 15 MG DAILY 08/12 1000 AC 08/13 PO 0950 Simethicone 80 MG Q4P PRN 08/11 2345 AC 08/13 PO 0035 Sodium Chloride 1,000 ML Q13H 08/12 0515 DC 08/12 IV 08/12 1814 0430 Sucralfate 1 GM TID 08/12 1727 08/13 PO 1553 Results Last 48 Hrs of Labs/Mics: Laboratory Tests 08/13/17 1800: APTT Cancelled 08/13/17 0625: Anion Gap 8, Estimated GFR > 60, BUN/Creatinine Ratio 20.0, APTT 89 H, CBC w Diff NO MAN DIFF REQ, RBC 3.15 L, MCV 87.0, MCH 29.0, MCHC 33.4, RDW 14.1, MPV 7.6, Gran % 63.6, Lymphocytes % 26.6, Monocytes % 9.4 H, Eosinophils % 0, Basophils % 0.4, Absolute Granulocytes 5.7, Absolute Lymphocytes 2.4, Absolute Monocytes 0.8 H, Absolute Eosinophils 0, Absolute Basophils 0 08/12/17 2247: APTT 40 H 08/12/17 1040: APTT 33 08/12/17 0620: CBC w Diff NO MAN DIFF REQ, RBC 3.35 L, MCV 86.8, MCH 28.8, MCHC 33.2, RDW 14.2 , MPV 7.7, Gran % 76.9 H, Lymphocytes % 15.5 L, Monocytes % 7.3, Eosinophils % 0.1, Basophils % 0.2, Absolute Granulocytes 3.2, Absolute Lymphocytes 0.6 L, Absolute Monocytes 0.3, Absolute Eosinophils 0, Absolute Basophils 0 08/12/17 0400: Anion Gap 12, Estimated GFR > 60, BUN/Creatinine Ratio 24.0, Hemoglobin A1c 5.8, Troponin I < 0.01, Triglycerides 62, Cholesterol 79, LDL Cholesterol, Calc 51 L , HDL Cholesterol 16 L, Cholesterol/HDL Ratio 4.9 H, TSH 0.316, Free T4 1.31, Lyme Disease Antibody 0.16 08/11/17 2205: Iron 14 L, TIBC 227 L, Ferritin 466.0 H, Troponin I 0.01, Amylase < 30 L, Lipase 32, Vitamin B12 768, Folate 19.7, TSH 0.677, Free T4 1.48, Hepatitis A IgM Ab NONREACTIVE, Hep Bs Antigen NONREACTIVE, Hep B Core IgM Ab Conf NONREACTIVE, Hepatitis C Antibody NONREACTIVE 08/11/17 1823: Lactic Acid Cancelled Microbiology 08/12 899 URINE ROUT: Legionella Antigen - COMP 08/12 899 URINE ROUT: Streptococcus pneumoniae Antigen (M - COMP Recent Imaging Studies: Echocardiogram 08/12/2017: Normal size left ventricle. Normal left ventricular wall thickness. No obvious regional wall motion abnormalities. Normal left ventricular ejection fraction visually estimated at >55%. Normal left ventricular diastolic filling pattern for age. Normal right ventricular size and function. Normal atrial size. Mild mitral regurgitation. Mild tricuspid regurgitation. No evidence of pulmonary hypertension. Trace pulmonic regurgitation. Small pericardial effusion. Left pleural effusion. Dilated inferior vena cava. Assessment/Plan Assessment/Plan [id number] w/ hx of childhood asthma, previous Zika infection, Raynaud's phenomenon, and "SLE" who presented to the ED on 08/11/2017 w/ c/o left back, low left precordial, and left upper quadrant pain that has been present for approximately 2 weeks after he used a "backpack vacuum". A moderate size pericardial effusion was also observed on CTA and he had transient atrial fibrillation, but is now back in sinus rhythm. While we are not certain at this time that Mr. Burgos has SLE, it is well known that numerous cardiac problems can be associated with this disease and include pericardial/myocardial disease, valvular disease, coronary disease, and conduction disease. Pericardial involvement is the most common lesion in SLE and is the most frequent cause of symptomatic cardiac disease. Pericardial effusion occurs at some point in over one half of patient's with SLE. The concern was whether his back, lower precordial, & left upper quadrant discomfort were musculoskeletal or associated with his pericardial effusion. With the physical finding of a pericardial friction rub it is very likely that the discomfort is secondary to pericardial inflammation and the plan will be to treat this. Recommendations: * Limited echocardiogram to reassess pericardial effusion and exclude hemodynamic compromise. * Repeat ECG. * Start ibuprofen 600-800 mg 3 times daily and taper weekly over 2-4 weeks once symptoms have resolved. * Start colchicine 0.6 mg twice daily, given his weight of over 70 kg (weight 176= 80 kg), and continue for 3 months. * GI protection with proton pump inhibitor (omeprazole) while being treated with NSAIDs. * Continue DVT prophylaxis. Continue telemetry? Yes
[2017-08-13 22:27] VITALS: BP 124/80
[2017-08-14 06:50] VITALS: BP 120/70
--- NOTE | 2017-08-14 07:14 | PN- Housestaff ---
See Addendum Subjective Follow-up For: Pericarditis with pericardial effusion Atypical chest pain A. fib - resolved Tele-Events Since Last Visit: NSR HR 66-70 Subjective: Patient feels better this morning. Reports chest pain with movement. He denies SOB, palpitations, nausea, vomiting. Patient anticipates discharge today. Review of Systems Constitutional: Reports: see HPI. Objective Last 24 Hrs of Vital Signs/I&O Vital Signs Date Time Temp Pulse Resp B/P B/P Pulse O2 O2 Flow FiO2 Mean Ox Delivery Rate 08/14 1434 97.7 79 18 120/72 99 Room Air 08/14 0650 97.6 75 20 120/70 98 Room Air 08/13 2227 98.3 90 20 124/80 99 Intake & Output 08/14 1600 08/14 0800 08/14 0000 Intake Total 450 280 355 Output Total Balance 450 280 355 Intake, IV 50 40 15 Intake, Oral 400 240 340 Physical Exam General Appearance: Alert, Oriented X3, Cooperative, No Acute Distress HEENT: Mucous Membr. moist/pink Cardiovascular: mild friction rub Lungs: Clear to Auscultation, Normal Air Movement Abdomen: Normal Bowel Sounds, Soft, No Tenderness Extremities: No Edema, BL cyanotic fingers Current Medications: Current Medications Sig/Jefferson Start time Last Medication Dose Route Stop Time Status Admin Acetaminophen 975 MG .STK-MED ONE 08/13 2047 DC PO 08/13 2048 Acetaminophen 975 MG Q8P PRN 08/12 0600 AC 08/13 PO 2126 Benzocaine/Menthol 1 SAGE Q2P PRN 08/13 2044 AC 08/13 PO 2125 Colchicine 600 MCG BID 08/13 2199 AC 08/14 PO 0849 Diltiazem HCl 125 MG Q24H 08/15 1000 CAN Sodium Chloride 100 ML IV Diltiazem HCl 30 MG Q8H 08/14 1600 AC 08/14 PO 1638 Diltiazem HCl 125 MG Q24H 08/12 0330 AC 08/14 Sodium Chloride 100 ML IV 08/15 0959 0127 Hydroxychloroquine 400 MG DAILY 08/12 1000 AC 08/14 Sulfate PO 0849 Ibuprofen 800 MG TID 08/13 220 DC 08/14 PO 0849 Lidocaine 1 PAT DAILY 08/13 1130 AC 08/14 EXT 0849 Omeprazole 40 MG BID 08/12 2199 AC 08/14 PO 0851 Prednisone 20 MG ONCE ONE 08/14 0900 DC 08/14 PO 08/14 0901 1640 Prednisone 20 MG BID 08/13 2200 DC 08/14 PO 0849 Prednisone 15 MG DAILY 08/12 1000 DC 08/13 PO 0950 Simethicone 80 MG Q4P PRN 08/11 2345 AC 08/13 PO 0035 Sucralfate 1 GM TID 08/12 1727 AC 08/14 PO 1638 Last 24 Hrs of Lab/Ranjith Results Last 24 Hrs of Labs/Mics: Laboratory Tests 08/14/17 0622: Anion Gap 11, Estimated GFR > 60, BUN/Creatinine Ratio 22.0 08/13/17 1800: APTT Cancelled Assessment/Plan Assessment: Mr. Burgos is a 37-year-old male with past medical history of asthma, SLE, and Zika infection who presents with chest pain and coughing. Active issues: PAF * Discontinue IV Cardizem * Start Cardizem 30 mg TID Moderate pericardial effusion/Chest pain 2/2 Pericarditis EKG shows no evidence of pericarditis. ECHO showed moderate pericardial effusion. EF> 55%. Serial EKG and troponins r/o ACS. ceftriaxone and doxycycline were initiated but then discontinued later after consulting Dr Ramos. * Cardiology recommendations appreciated * Infectious disease recommendations appreciated * Rheumatology recommendations appreciated * Continue colchicine History of SLE * Continue Prednisone * Rheumatology recommendations appreciated * Follow up with [facility] upon discharge Normocytic anemia/Thrombocytosis His anemia is most likely related to chronic disease given his SLE and iron studies. Thrombocytosis is likely reactive. * Monitor hemoglobin and platelets Abdominal pain Abdomen US showed Hepatomegaly/Hepatic liver cysts. Alkaline phosphatase is mildly elevated. Amylase and lipase negative. HIV negative. Hepatitis B panel negative. * Continue Omeprazole Diet: Heart healthy Code: FULL Problem List: 1. Lupus 2. Pericardial effusion Pain Ratin Pain Location: Chest, Neck Pain Goal: Remain pain free Pain Plan: Lidoderm patch, Acetaminophen Tomorrow's Labs & Rationales: None
--- NOTE | 2017-08-14 08:31 | PN- Rheumatology ---
Subjective Subjective: Patient is feeling better with less shortness of breath but still has some pleuritic chest pain in his left shoulder and scapular region. He is afebrile but has been placed on prednisone. He denies joint pains. Objective Vital Signs and I&Os Vital Signs Date Time Temp Pulse Resp B/P B/P Pulse O2 O2 Flow FiO2 Mean Ox Delivery Rate 08/14 0650 97.6 75 20 120/70 98 Room Air 08/13 2227 98.3 90 20 124/80 99 08/13 1414 97.9 85 20 120/76 99 Room Air 08/13 1002 Room Air Intake & Output 08/14 1600 08/14 0800 08/14 0000 08/13 1600 08/13 0800 08/13 0000 Intake Total 280 355 590 550 950 Output Total Balance 280 355 590 550 950 Intake, IV 40 15 40 350 300 Intake, Oral 240 340 550 200 650 Number 1 Bowel Movements Physical Exam: He has no rash or tender or swollen joints. His pulse is still somewhat rapid at 92. Discussion with Dr. Champagne last night revealed that records were obtained from his previous hospitalization in [place] and reportedly the DUKE is positive as well as anti-DNA antibodies and complement levels. The values are not in the chart as of yet however. Current Medications: Current Medications Sig/Jefferson Start time Last Medication Dose Route Stop Time Status Admin Acetaminophen 975 MG .STK-MED ONE 08/13 2047 DC PO 08/13 204 Acetaminophen 325 MG .STK-MED ONE 08/13 1555 DC PO 08/13 1556 Acetaminophen 650 MG .STK-MED ONE 08/13 1551 DC PO 08/13 1552 Acetaminophen 975 MG Q8P PRN 08/12 06 AC 08/13 PO 2125 Benzocaine/Menthol 1 SAGE Q2P PRN 08/13 204 AC 08/13 PO 212 Colchicine 600 MCG BID 08/13 2199 AC 08/13 PO 2028 Diltiazem HCl 125 MG Q24H 08/12 0330 AC 08/14 Sodium Chloride 100 ML IV 0127 Heparin Sodium 25,000 UNIT Q24H 08/12 0315 DC 08/12 (Porcine) IV 2224 Sodium Chloride 500 ML Hydroxychloroquine 400 MG DAILY 08/12 1000 AC 08/13 Sulfate PO 0950 Ibuprofen 800 MG TID 08/13 2199 AC 08/13 PO 2031 Lidocaine 1 PAT DAILY 08/13 1130 AC 08/13 EXT 1444 Omeprazole 40 MG BID 08/12 2200 AC 08/13 PO 2030 Prednisone 20 MG BID 08/13 2200 AC 08/13 PO 2028 Prednisone 15 MG DAILY 08/12 1000 DC 08/13 PO 0950 Simethicone 80 MG Q4P PRN 08/11 2345 AC 08/13 PO 0035 Sucralfate 1 GM TID 08/12 1727 AC 08/13 PO 2030 Assessment/Plan Assessment: Pericarditis with pericardial effusion right likely secondary to SLE. At this point there seems to be no other manifestations of SLE. His urinalysis is normal but I did recommend if still hospitalized at a 24-hour urine for protein and creatinine clearance B obtained. Again if the report of specific lab results mentioned before are documented in this chart it would be most helpful. Plan: I would recommend continuing prednisone 40 mg daily to be dropped to 30 mg after one week and then 20 mg daily. With regards to the Plaquenil Isaly did not object him staying on this medication which is a benign medication is usually useful mostly for arthritic and cutaneous manifestations of SLE. Follow-up with cardiology to follow the pericardial effusion is most important at this time. Please do not hesitate to contact me if any further input from the rheumatology perspective is needed
[2017-08-14] MEDS ORDERED: COLCHICINE0.6 M2 PO ×2 (13:13→18:12)
[2017-08-14] MEDS ORDERED: LIDODERM1 EACH EXT ×2 (13:15→18:12)
--- NOTE | 2017-08-14 13:49 | PN- Student ---
Salo Avendaño 08/14/17 1257: Subjective Subjective: Mr. Burgos is a 37 y.o. 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 He presented to the ED on 08/11/2017 w/ c/o coughing, SOB, as well as back & chest pain for about two weeks & was admitted to telemetry after chest CTA revealed pericardial effusion, he is currently on day four of hospitalization. Overnight, the patient had NSR w/ rate of 66-70. He reported sleeping better but still woke up every few hours and complained of increased night sweats. This morning, the patient reports feeling much better overall, with decreased SOB, and pleuretic chest pain radiating to his L. shoulder & scapula which has improved but not yet resolved. The patients states that his neck is still in pain as well but has improved since last night. Objective Objective: Vital Signs Date Time Temp Pulse Resp B/P B/P Pulse O2 O2 Flow FiO2 Mean Ox Delivery Rate 08/14 0650 97.6 75 20 120/70 98 Room Air 08/13 2227 98.3 90 20 124/80 99 08/13 1414 97.9 85 20 120/76 99 Room Air Intake & Output 08/14 1600 08/14 0800 08/14 0000 Intake Total 280 355 Output Total Balance 280 355 Intake, IV 40 15 Intake, Oral 240 340 Physical Exam: G/A: A&O, cooperative, & in no acute distress. He appears well groomed, has positive affect, & is seated comfortably by his bed for breakfast. Skin: There is no evidence of rash, echymosis, jaundice, or visible skin lesions. CV: Radial pulses are 2+ bilaterally, revealing slightly increased rate (92bpm) & regular rhythm. Auscultation reveals S1 & S2 w/ audible systolic murmur & biphasic pericardial fricion rub, severity of auscultory findings are decreased compared to yesterday. Lung: Inspection reveals normal movement of chest wall with breathing & no use of accessory muscles. Decreased breath sounds heard bilaterally on auscultation of the posterior chest wall. Abdomen: Soft & non-tender to palpation with no distension or guarding. Normal bowel sounds heard throughout. Extremities: Inspection reveals symmetrical upper extremities with bilateral peripheral cyanosis of the fingertips. Decreased capillary refill noted on palpation & no evidence of joint swelling or tenderness observed. No edema found on upper or lower extremities. Medications: Prednisone - 20mg BID (increased from 15mg/day as per Rheum for SLE) Ibuprofen - 800mg TID (added by Cardio for Pericarditis) Colchicine - 600mcg BID (added by Cardio for Pericarditis) Lidocaine - 1 patch/day (for neck pain) Omeprazole - 40mg BID (PPI for GI protection) Sucralfate - 1g TID Hydroxychloroquine - 400mg/day Acetaminophen - 975mg Q8P PRN PO Cardizem Drip - 125mg Q24H IV @5mg/hr Mylicon - 80mg Q4P PRN PO Results Results: Laboratory Tests 08/14/17 0622: Anion Gap 11, Estimated GFR > 60, BUN/Creatinine Ratio 22.0 08/13/17 1800: APTT Cancelled 08/13/17 0625: Anion Gap 8, Estimated GFR > 60, BUN/Creatinine Ratio 20.0, APTT 89 H, CBC w Diff NO MAN DIFF REQ, RBC 3.15 L, MCV 87.0, MCH 29.0, MCHC 33.4, RDW 14.1, MPV 7.6, Gran % 63.6, Lymphocytes % 26.6, Monocytes % 9.4 H, Eosinophils % 0, Basophils % 0.4, Absolute Granulocytes 5.7, Absolute Lymphocytes 2.4, Absolute Monocytes 0.8 H, Absolute Eosinophils 0, Absolute Basophils 0 08/12/17 2247: APTT 40 H 08/12/17 1040: APTT 33 08/12/17 0620: CBC w Diff NO MAN DIFF REQ, RBC 3.35 L, MCV 86.8, MCH 28.8, MCHC 33.2, RDW 14.2 , MPV 7.7, Gran % 76.9 H, Lymphocytes % 15.5 L, Monocytes % 7.3, Eosinophils % 0.1, Basophils % 0.2, Absolute Granulocytes 3.2, Absolute Lymphocytes 0.6 L, Absolute Monocytes 0.3, Absolute Eosinophils 0, Absolute Basophils 0 08/12/17 0400: Anion Gap 12, Estimated GFR > 60, BUN/Creatinine Ratio 24.0, Hemoglobin A1c 5.8, Troponin I < 0.01, Triglycerides 62, Cholesterol 79, LDL Cholesterol, Calc 51 L , HDL Cholesterol 16 L, Cholesterol/HDL Ratio 4.9 H, TSH 0.316, Free T4 1.31, Lyme Disease Antibody 0.16 08/11/17 2205: Iron 14 L, TIBC 227 L, Ferritin 466.0 H, Troponin I 0.01, Amylase < 30 L, Lipase 32, Vitamin B12 768, Folate 19.7, TSH 0.677, Free T4 1.48, Hepatitis A IgM Ab NONREACTIVE, Hep Bs Antigen NONREACTIVE, Hep B Core IgM Ab Conf NONREACTIVE, Hepatitis C Antibody NONREACTIVE 08/11/17 1823: Lactic Acid Cancelled 08/11/17 1719: Urine Opiates Screen < 100.00, Methadone Screen < 40, Barbiturate Screen < 60, Ur Phencyclidine Scrn < 6.00, Amphetamines Screen < 100, U Benzodiazepines Scrn < 85, Urine Cocaine Screen < 50, Urine Cannabis Screen < 5.00, Urine Color YEL, Urine Clarity CLEAR, Urine pH 6.5, Ur Specific [place] 1.010, Urine Protein NEG, Urine Ketones TRACE H, Urine Nitrite NEG, Urine Bilirubin NEG, Urine Urobilinogen 1.0, Ur Leukocyte Esterase NEG, Ur Microscopic EXAM NOT REQUIRED, Urine Hemoglobin NEG, Urine Glucose NEG 08/11/17 1600: Lactic Acid 1.1 08/11/17 1600: Anion Gap 12, Estimated GFR > 60, BUN/Creatinine Ratio 20.0, Glucose 103 H, Calcium 8.9, Total Bilirubin 0.8, AST 21, ALT 52, Alkaline Phosphatase 155 H, Troponin I 0.01, C-Reactive Prot, Quant > 9.0 H, Total Protein 7.7, Albumin 3.6 , Globulin 4.1, Albumin/Globulin Ratio 0.9 L, PT 14.5 H, INR 1.39 H, APTT 30, D-Dimer High Sensitivty 1799 H, CBC w Diff NO MAN DIFF REQ, RBC 3.10 L, MCV 86.5, MCH 28.9, MCHC 33.4, RDW 13.9, MPV 7.2 L, Gran % 80.0 H, Lymphocytes % 10.6 L, Monocytes % 9.2, Eosinophils % 0.1, Basophils % 0.1, Absolute Granulocytes 4.6, Absolute Lymphocytes 0.6 L, Absolute Monocytes 0.5, Absolute Eosinophils 0, Absolute Basophils 0, ESR W[place]gren > 130 H, HIV 1&2 Ab Western Blot NONREACTIVE, Serum Alcohol < 10.0 Microbiology 08/12 899 URINE ROUT: Legionella Antigen - COMP 08/12 899 URINE ROUT: Streptococcus pneumoniae Antigen (M - COMP 08/12 511 LOWER RESP: AFB Culture with PCR Identification - CAN Cancelled: SPECIMEN NOT RECEIVED IN LABORATORY 08/12 511 LOWER RESP: AFB Smear Concentration - CAN Cancelled: SPECIMEN NOT RECEIVED IN LABORATORY 08/11 1615 BLOOD: Blood Culture - RES 08/11 1600 BLOOD: Blood Culture - RES [place]: - Cardiac: Saw patient last night, pericardial friction rub on auscultation, recomended starting Colchicine + Ibuprofen for the pericarditis & continuing PPI for GI protection. Also recommends limited echocardiogram to reassess pericardial effusion and exclude hemodynamic compromise & repeat ECG. - Rheum: Medical records from [facility] confirmed SLE diagnosis, recommends staying on Prednosone 40mg daily & decreasing to 30mg after 1 week & then 20mg daily the week after. Assessment/Plan Assessment: Mr. Burgos is a 37 y.o. white male w/ PMHx of SLE that was admitted to telemetry for pericardial effusion/pericarditis. Patient reported feeling significantly improved today, he was started on Colchicine + Ibuprophen and switched to a higher dose of Prednisone last night. Peripheral cyanosis noted on P/E is most likely secondary to Raynauds phenomenon which may have been trigged by nurses lowering his room temperature last night after the patient complained of night sweats. Pericardial effusion found on CTA & Echo is most likely due to SLE. Physical exam finding of pericardial friction rub indicates pericardial inflammation which most likely accounts for the patients chest pain. Patient can be discharged today pending results of the limited Echo. Plan: - Continue patient on Colchicine + Prednisone for treatment of pericarditis & SLE as per cardio & rheum. - f/u cardio for limited echocardiogram to reassess pericardial effusion and exclude hemodynamic compromise - Discontinue NSAIDs d/t patients increased bleeding risk, secondary to pancytopenia as a result of SLE - Reffer to [facility] to fulfill need for new PCP, will reffer to [place] [facility] - f/u with cardiology as outpatient - Switch patient to Diltiazem 30mg PO 3x/day on discharge - Continue home medications
[2017-08-14 14:34] VITALS: BP 120/72
[2017-08-14] MEDS ORDERED: CARDIZEM30 M1 PO ×2 (15:50→18:12)
[2017-08-14] MEDS ORDERED: PREDNISONE20 M1 PO ×3 (16:03→18:12)
--- NOTE | 2017-08-14 18:16 | ECHOCARDIOGRAM REPORT ---
ZORAIDA GARZA Age: 37 : 1980 Gender: M Exam Date: 08/13/2017 19:23 Exam Location: [address] Ht (in): 73 Wt (lb): 175 BSA: 2.02 BP: / Ordering Physician: Amparo Braun MD Referring Physician: Lester Cortes MD Technologist: Kayy Quinones [facility] Room Number: 179-01 Indications: PERICARDIAL EFFUSION Rhythm: Sinus Technical Quality: Good FINDINGS Left Ventricle Limited study to follow-up pericardial effusion: Normal size left ventricle. Normal left ventricular wall thickness. Normal left ventricular wall motion. Normal left ventricular ejection fraction visually estimated at >55%. Right Ventricle Normal right ventricular size and function. Right Atrium Normal right atrial size. Left Atrium Normal left atrial size. Mitral Valve Mitral valve mildly thickened. Mild mitral regurgitation. Aortic Valve Structurally normal trileaflet aortic valve. No aortic valve stenosis or regurgitation. Tricuspid Valve Structurally normal tricuspid valve. Mild tricuspid regurgitation. Pulmonic Valve Pulmonic valve not well visualized, grossly normal. Trace pulmonic regurgitation. Pericardium Small pericardial effusion. No echocardiographic findings to suggest a hemodynamically significant pericardial effusion. Great Vessels Normal size aortic root. CONCLUSIONS The size of the pericardial effusion appears slightly smaller. There remains no evidence of hemodynamic compromise from the pericardial effusion. Lester Corets M.D. (Electronically Signed) Final Date: 14 August 2017 18:15 MEASUREMENTS (Male / Female) Normal Values
== END 2017-08-14 18:45 | disposition home health service (06) | DRG 207 ==
LOC: ERH 13:36 → ERHI 20:13 → 1NO 20:13 → ENRESERV 20:58 → ENTRNSPT 22:45 → EDTRNSPTSTS 22:50 → 1NO 23:07 → CMPTRNSPT 23:21 → 1NO 08-12 15:09
PROVIDERS: Emergency Medicine; Internal Medicine; Radiology Vascular & Interventional Radiology; Student in an Organized Health Care Education/Training Program
DX: I31.3 Pericardial effusion (noninflammatory) (principal); M32.9 Systemic lupus erythematosus, unspecified; D64.9 Anemia, unspecified; D47.3 Essential (hemorrhagic) thrombocythemia; E87.1 Hypo-osmolality and hyponatremia; J45.909 Unspecified asthma, uncomplicated; I48.0 Paroxysmal atrial fibrillation; A92.5 Zika virus disease; I73.00 Raynaud's syndrome without gangrene; Z87.891 Personal history of nicotine dependence; R01.1 Cardiac murmur, unspecified
CPT/HCPCS: 1NSP; 86618; 36415; 36592; 71046; 80307; 81003; 82436; 87040; 87389; 87449; 87450; 87804; 87804-59; 93005; 93010; 93306; 93308; 93321; G0480; J0131; J0696; J1644; J1650; J1885; J2930; J7512